=== PATIENT | female | born 1965 | race Asian ===

== ENCOUNTER → 2018-09-09 12:50 | Outpatient (CLI) | payer OTHER, SELFPAY ==
--- NOTE | 2018-09-09 | DI.MG.S_ITS ---
BILATERAL DIGITAL SCREENING MAMMOGRAM 3D/2D WITH CAD: 09/09/2018 CLINICAL: Routine screening. Comparison is made to exams dated: 01/23/2016 mammogram, 10/04/2014 mammogram, and 04/05/2008 mammogram - [facility]. The tissue of both breasts is heterogeneously dense. This may lower the sensitivity of mammography. Current study was also evaluated with a Computer Aided Detection (CAD) system. No significant masses, calcifications, or other findings are seen in either breast. There has been no significant interval change. IMPRESSION: NEGATIVE There is no mammographic evidence of malignancy. A 1 year screening mammogram is recommended. This exam was interpreted at Station ID: [id number]. NOTE: For mammograms, a report in lay terms will be sent to the patient. Approximately 15% of breast malignancies will not be visualized mammographically. In the management of a palpable breast mass, a negative mammogram must not discourage biopsy of a clinically suspicious lesion. Electronically Signed By: Rainer ye/carmen:09/11/2018 03:00:05 letter sent: Normal Exam ACR BI-RADS Category 1: Negative 3341F
== END ==
PROVIDERS: PCP Registered Nurse Women's Health Care, Ambulatory; Visit Provider Family Medicine
DX: Z12.31 Encounter for screening mammogram for malignant neoplasm of breast (principal)
CPT/HCPCS: 77063; 77067

== ENCOUNTER → 2018-11-01 12:37 | Outpatient (CLI) | payer OTHER, SELFPAY ==
--- NOTE | 2018-11-01 | DI.MRI.S_ITS ---
PROCEDURE: MR LUMBAR SPINE WO CON INDICATIONS: LUMBAR RADICULOPATHY,CHRONIC NECK PAIN TECHNIQUE: Noncontrast sagittal T1 spin echo and T2 fast echo, sagittal STIR, axial T1 and T2 fast spin echo through the lumbar spine. In cases with scoliosis, additional coronal T2 fast spin echo may be performed. COMPARISON: [facility] [place], CR, XR LUMBAR SPINE 2 OR 3 VIEWS, 10/19/2018, 9:00. FINDINGS: Image quality: Excellent. Alignment and Curvature: There is a transitional element at S1. Bone Marrow: Marrow is of normal overall signal. No acute vertebral body compression fractures. Spinal Cord: Conus medullaris terminates at the L1-L2 disc space level. Visualized cord demonstrates normal signal and size. Paraspinous Soft Tissues: There is a 40 mm diameter partially exophytic predominantly fat-containing mass within the superior pole left kidney. L1-L2: Mild facet hypertrophy. No significant canal, nor foraminal stenosis. L2-L3: Minimal disc desiccation. Minimal diffuse disc bulge. Mild bilateral facet hypertrophy. Mild canal stenosis. No foraminal stenosis. L3-L4: Mild disc height loss and desiccation. Mild diffuse disc bulge. Mild bilateral facet hypertrophy. Mild epidural lipomatosis. Mild canal stenosis. Mild bilateral foraminal stenosis or L4-L5: Mild bilateral facet hypertrophy. No significant canal, nor foraminal stenosis. L5-S1: Mild diffuse disc bulge. Mild bilateral facet hypertrophy. Mild bilateral foraminal stenosis. No canal stenosis. IMPRESSION: 1. Left superior pole renal angiomyolipoma. For lesions of this size, prophylactic embolization should be considered for prevention of hemorrhage. Interventional radiology consultation at [facility] could be considered, if clinically indicated. 2. Transitional anatomy at the lumbosacral junction as described above. Recommend correlation with plain films and the montage final for the current examination for numbering purposes, prior to any lumbar spinal intervention. 3. Multilevel degenerative disc and facet disease, causing mild multilevel canal and foraminal stenoses as described above. No neural impingement. Dictated by: Ernestina Canales M.D. on 11/01/2018 at 15:25 Approved by: Ernestina Canales M.D. on 11/01/2018 at 15:30
--- NOTE | 2018-11-01 | DI.MRI.S_ITS ---
PROCEDURE: MR CERVICAL SPINE WO CON INDICATIONS: CHRONIC NECK PAIN TECHNIQUE: Noncontrast sagittal T1 spin echo and T2 fast spin echo, sagittal STIR, foraminal oblique sagittal T2 fast spin echo, and axial gradient echo or T2 fast spin echo through the cervical spine. COMPARISON: [facility] [place], CR, XR CERVICAL SPINE 2 OR 3 VIEWS, 10/19/2018, 8:57. FINDINGS: Image quality: Excellent. Alignment and Curvature: There is loss of normal cervical lordosis. Bone Marrow: Marrow demonstrates normal overall signal. Partial C4-C5 collection is present. Rudimentary C4-C5 intervertebral disc. Spinal Cord: Visualized spinal cord has normal size and signal. No cerebellar tonsillar herniation. Paraspinous Soft Tissues: No paravertebral masses. Prevertebral soft tissues are normal in thickness. C2-C3: Normal appearance. C3-C4: Congenital canal stenosis. Mild disc desiccation and diffuse disc bulge. Mild bilateral facet hypertrophy. Moderate canal stenosis. Mild right and moderate left foraminal stenosis. C4-C5: Rudimentary disc. No significant canal, nor foraminal stenosis. C5-C6: Moderate disc desiccation. Mild diffuse disc bulge. Congenital canal stenosis. Mild bilateral facet hypertrophy and uncovertebral hypertrophy. Moderate canal stenosis. Minimal cord flattening. Moderate foraminal stenosis bilaterally. C6-C7: Moderate disc desiccation. Mild diffuse disc bulge. Small central protrusion and annular tear. Congenital canal stenosis. There is overall moderate canal stenosis. No foraminal stenosis. C7-T1: Normal appearance. IMPRESSION: 1. Diffuse congenital canal stenosis with superimposed disc and facet disease, as well as uncovertebral hypertrophy. 2. Multilevel canal stenoses, worst at C5-C6, where there is minimal cord flattening present. 3. Multilevel foraminal stenoses, worst at C3-C4 on the left, and at C5-C6 bilaterally. Dictated by: Ernesitna Canales M.D. on 11/01/2018 at 15:19 Approved by: Ernestina Canales M.D. on 11/01/2018 at 15:24
== END ==
PROVIDERS: PCP Registered Nurse Women's Health Care, Ambulatory; Visit Provider Physician Assistant
DX: M48.02 Spinal stenosis, cervical region (principal); D17.71 Benign lipomatous neoplasm of kidney; M50.21 Other cervical disc displacement, high cervical region; M51.16 Intervertebral disc disorders with radiculopathy, lumbar region; M51.17 Intervertebral disc disorders with radiculopathy, lumbosacral region; M48.061 Spinal stenosis, lumbar region without neurogenic claudication; M48.07 Spinal stenosis, lumbosacral region; G89.29 Other chronic pain
CPT/HCPCS: 72141; 72148

== ENCOUNTER → 2019-09-12 10:50 | Outpatient (CLI) | payer OTHER, SELFPAY ==
--- NOTE | 2019-09-12 | DI.MG.S_ITS ---
BILATERAL DIGITAL SCREENING MAMMOGRAM 3D/2D WITH CAD: 09/12/2019 CLINICAL: Routine screening. Comparison is made to exams dated: 09/09/2018 mammogram, 01/23/2016 mammogram, and 10/04/2014 mammogram - [facility]. The tissue of both breasts is heterogeneously dense. This may lower the sensitivity of mammography. Current study was also evaluated with a Computer Aided Detection (CAD) system. There is an irregular asymmetry in the right breast middle depth central to the nipple seen on the craniocaudal view only. Finding is best noted on tomographic CC slice 38. There is possible architectural distortion associated with the asymmetry. No other significant masses, calcifications, or other findings are seen in either breast. IMPRESSION: INCOMPLETE: NEEDS ADDITIONAL IMAGING EVALUATION The irregular asymmetry in the right breast is indeterminate. Additional views with possible ultrasound are recommended. This exam was interpreted at Station ID: [id number]. NOTE: For mammograms, a report in lay terms will be sent to the patient. Approximately 15% of breast malignancies will not be visualized mammographically. In the management of a palpable breast mass, a negative mammogram must not discourage biopsy of a clinically suspicious lesion. Electronically Signed By: Rainer Lord M.D. ecl/:09/12/2019 21:54:19 letter sent: Additional Imaging Needed ACR BI-RADS Category 0: Incomplete 3340F
== END ==
PROVIDERS: PCP Nurse Practitioner Family; Visit Provider Nurse Practitioner Family
DX: Z12.31 Encounter for screening mammogram for malignant neoplasm of breast (principal)
CPT/HCPCS: 77063; 77067

== ENCOUNTER → 2019-10-09 09:58 | Outpatient (CLI) | payer OTHER, SELFPAY ==
--- NOTE | 2019-10-09 | DI.US.S_ITS ---
LIMITED ULTRASOUND OF RIGHT BREAST: 10/09/2019 CLINICAL: Patient returns today to evaluate a focal asymmetry in the right breast. Comparison is made to exams dated: 10/09/2019 mammogram, 09/12/2019 mammogram, 09/09/2018 mammogram, 01/23/2016 mammogram, 10/04/2014 mammogram, and 04/05/2008 mammogram - [facility]. Real-time ultrasound of the right breast 3-4 o'clock region was performed. Felipe scale images of the real-time examination were reviewed. No significant abnormalities were seen sonographically in the right breast. Specifically, no finding to correspond to the patient's mammographic abnormality which partially resolved with focal spot compression. IMPRESSION: PROBABLY BENIGN There are no abnormalities seen in the right breast to correspond with the mammography findings at 3 to 4 o'clock. A follow-up right mammogram in 6 months is recommended to demonstrate stability. Findings and recommendations were conveyed to the patient at time of exam. This exam was interpreted at Station ID: [id number]. Electronically Signed By: Marguerite guerrero/:10/09/2019 11:12:01 letter sent: Followup Recommended Ultrasound BI-RADS: 3 Probably benign
--- NOTE | 2019-10-09 | DI.MG.S_ITS ---
UNILATERAL RIGHT DIGITAL DIAGNOSTIC MAMMOGRAM 3D/2D WITH ADDITIONAL VIEWS: 10/09/2019 CLINICAL: Additional evaluation requested from prior study. Comparison is made to exams dated: 09/12/2019 mammogram, 09/09/2018 mammogram, and 01/23/2016 mammogram - [facility]. The tissue of right breast is heterogeneously dense. This may lower the sensitivity of mammography. There is a 1 cm irregular asymmetry in the right breast middle depth medial region seen best on the craniocaudal view 1.5 cm from the nipple. This maybe present in the 3-4 o'clock position. This is questionably present in focal spot compression views but is less prominent than on the screening study. There is possible architectural distortion associated with the asymmetry, also less prominent. No other significant masses or calcifications are seen in the breast. IMPRESSION: INCOMPLETE: NEEDS ADDITIONAL IMAGING EVALUATION The 1 cm irregular asymmetry with possible distortion in the right breast is indeterminate. An ultrasound is recommended. This was performed immediately following this exam. This exam was interpreted at Station ID: [id number]. NOTE: For mammograms, a report in lay terms will be sent to the patient. Approximately 15% of breast malignancies will not be visualized mammographically. In the management of a palpable breast mass, a negative mammogram must not discourage biopsy of a clinically suspicious lesion. Electronically Signed By: Marguerite guerrero/:10/09/2019 10:48:34 ACR BI-RADS Category 0: Incomplete 3340F
== END ==
PROVIDERS: PCP Nurse Practitioner Family; Visit Provider Nurse Practitioner Family
DX: R92.8 Other abnormal and inconclusive findings on diagnostic imaging of breast (principal); N64.89 Other specified disorders of breast
CPT/HCPCS: 76642; 77065; G0279

== ENCOUNTER 2020-03-21 14:46 | Emergency (ER) | payer OTHER, SELFPAY ==
[2020-03-21 14:58] VITALS: BP 108/56; PULSE 69; RESP 40; TEMP 36.8; O2SAT 94; BMI 25.6
--- NOTE | 2020-03-21 15:08 | DI.RAD.S_ITS ---
PROCEDURE: XR CHEST 1V INDICATIONS: cough x 6 weeks, no improvement, tachypnea. TECHNIQUE: One view of the chest was acquired. COMPARISON: None. FINDINGS: Surgical changes and devices: None. Lungs and pleura: The area of increased density is identified at the right lung base. No large area of pulmonary consolidation is evident. There is no effusion or pneumothorax. Mediastinum: Mediastinal contours appear normal. Heart size is normal. Bones and chest wall: No suspicious bony lesions. Overlying soft tissues appear unremarkable. IMPRESSION: Vague right basilar density may represent scarring or atelectasis. Please correlate clinically to exclude superimposed pneumonia. Dictated by: Imtiaz Haji M.D. on 03/21/2020 at 14:59 Approved by: Imtiaz Haji M.D. on 03/21/2020 at 15:00
--- NOTE | 2020-03-21 15:10 | ED.SOB ---
HPI - SOB/Dyspnea General Chief Complaint: Shortness of Breath/Dyspnea Stated Complaint: chest, short of breath Time Seen by Provider: 03/21/20 14:50 Source: patient and family () Mode of arrival: Ambulatory Limitations: no limitations History of Present Illness HPI Narrative: This is a 54-year-old female comes to the emergency department with complaint of cough for the past 6 weeks. Patient states that cough has not been significantly worsening but she came in today because she felt lightheaded and it has not improved. She has not had any fevers she occasionally has productive clear phlegm but not regularly. According to her and her who is augmenting her history when she is still her cough is fairly well controlled but when she is walking around her active or standing hit is worsened and frequent and inhibits her activities. She has not had any syncope. She did feel little lightheaded today. She describes little bit of chest and back pain with cough but is pain free when not coughing. She has not had any hemoptysis. She has had some slight nausea but no vomiting. She has had some diarrhea recently but not regularly. She denies any urinary symptoms. No swelling in her extremities. No long distance travel or travel outside the [facility]. She was covid tested yesterday and swabbed negative at the drive up site in [facility]. She has not had similar symptoms in the past. She has a history of hypothyroid and takes thyroid medication and has had a mass removed from her kidney in the past. She denies other surgical history. No tob use or exposure, denies etoh or illicit. No sick contacts that she is aware of, she lives with her who has not had any symptoms. Related Data Previous Rx's Medication Instructions Recorded codeine-guaifenesin 10 ml PO Q6H PRN #120 ml 03/21/20 Allergies Allergy/AdvReac Type Severity Reaction Status Date / Time No Known Drug Allergies Allergy Verified 03/21/20 14:58 Review of Systems Review of Systems ROS Unobtainable: All systems reviewed & are unremarkable except as noted in HPI and below Patient History Surgical History (Updated 03/15/18 @ 05:45 by Ambrose Davalos MD) Status post hemorrhoidectomy Social History Smoking Status: Never smoker Smoking Status: Never smoker Substance Use Type: does not use Exam Narrative Exam Narrative: GEN: well nourished, well appearing female, alert and oriented x 3, patient appears to be in [id number] distress. HEENT: Atraumatic, pupils are equal round reactive to light, extraocular movements are intact, nares are clear. HEART: Regular rate and rhythm without murmur, clicks, rubs. LUNGS:Lungs mildly decreased bilaterally on auscultation, no wheezes, rales, crackles, chest moves symmetrically, positive for tachypnea. Patient does not have any accessory muscle use. Patient does have a dry almost squeaky cough frequently in the room. ABD:bowel sounds normal, soft, non-tender, no guarding, rebound, rigidity, no masses noted, no hepatosplenomegaly :No CVA tenderness MSCL: Non-tender, no muscle atrophy, muscles strength 5/5 upper and lower extremities, full range of motion, normal gait NEURO:CN 2-12 intact, sensation normal. SKIN: no rash, no erythema or skin changes. Initial Vital Signs Initial Vital Signs: Vital Signs Temperature 98.2 F 03/21/20 14:58 Pulse Rate 69 03/21/20 14:58 Respiratory Rate 40 H 03/21/20 14:58 Blood Pressure 108/56 L 03/21/20 14:58 Pulse Oximetry 94 03/21/20 14:58 Course Orders Ordered: ED Orders 03/21/20 15:08 XR chest 1V Stat 03/21/20 15:26 Blood Culture Stat C-Reactive Protein Quant Stat Complete Blood Count AUTO DIFF Stat Comprehensive Metabolic Panel Stat D Dimer Stat Lactate (Lactic Acid) Stat NT-proBNP (BNP-Adult 18+) Stat Procalcitonin Stat Troponin & CK Cardiac Panel Stat 03/21/20 16:23 CT angio chest PE protocol Stat 03/21/20 17:34 Lactate (Lactic Acid) Stat Discontinued Medications Albuterol (Ventolin Hfa) 8 puff INH NOW ONE Stop: 03/21/20 15:09 Last Admin: 03/21/20 15:28 Dose: 8 puff Documented by: COLETTE Guaifenesin/Codeine Phosphate (Guaifenesin/Codeine Liquid) 10 ml PO NOW ONE Stop: 03/21/20 15:09 Last Admin: 03/21/20 15:24 Dose: 10 ml Documented by: STEPHANIE Sodium Chloride (Normal Saline 0.9%) 1,000 mls @ 1,000 mls/hr IV BOLUS ONE Stop: 03/21/20 17:22 Last Infusion: 03/21/20 17:48 Dose: 0 mls/hr Documented by: Admin: 03/21/20 16:45 Dose: 1,000 mls/hr Documented by: KENISHA Ketorolac Tromethamine (Toradol) 30 mg IV NOW ONE Stop: 03/21/20 18:18 Vital Signs Vital signs: Vital Signs - 8 hr 03/21/20 14:58 03/21/20 15:32 03/21/20 15:55 Temperature 98.2 F Pulse Rate 69 97 H Respiratory Rate 40 H 28 H 22 Blood Pressure 108/56 L Blood Pressure [Right Arm] 101/67 Pulse Oximetry 94 94 100 03/21/20 16:30 03/21/20 19:15 Temperature Pulse Rate 67 81 Respiratory Rate 20 20 Blood Pressure Blood Pressure [Right Arm] 97/55 L 92/57 L Pulse Oximetry 99 99 MDM - SOB/Dyspnea Lab Data Attestation: I reviewed the patient's lab results. Result diagrams: 03/21/20 15:26 03/21/20 15:26 Labs: Lab Results 03/21/20 03/21/20 03/21/20 Range/Units 15:26 15:26 15:26 WBC 12.5 H (4.5-11.0) X10^3/uL RBC 4.68 (4.0-5.2) X10^6/uL Hgb 13.8 (12.0-16.0) g/dL Hct 41.0 (36-46) % MCV 87.6 (80-100) fL MCH 29.5 (26-34) PG MCHC 33.6 (30-36) % RDW 13.3 (11.6-14.8) % Plt Count 269 (150-400) X10^3/uL Neut % (Auto) 55.2 (50-75) % Lymph % (Auto) 35.8 (25-40) % Sandoval % (Auto) 5.0 (3-14) % Eos % (Auto) 3.5 (2-4) % Baso % (Auto) 0.5 (0-2) % Neut # (Auto) 6900 (4584-2236) /uL Lymph # (Auto) 4500 (1723-6620) /uL Sandoval # (Auto) 600 (0-900) /uL Eos # (Auto) 400 (0-450) /uL Baso # (Auto) 100 (0-100) /uL D-Dimer 603 H (<230) ng/mL Sodium 142 (137-145) mmol/L Potassium 3.8 (3.4-5.1) mmol/L Chloride 107 (98-107) mmol/L Carbon Dioxide 23 (22-32) mmol/L BUN 13 (7-17) mg/dL Creatinine 0.89 (0.52-1.04) mg/dL Estimated GFR > 60.0 (>60) mL/min BUN/Creatinine Ratio 14.6 (6-22) Glucose 98 (70-100) mg/dL Lactate (0.7-2.1) mmol/L Calcium 9.7 (8.4-10.2) mg/dL Total Bilirubin 0.5 (0.2-1.3) mg/dL AST 50 H (14-36) IU/L ALT 43 H (<35) IU/L Alkaline Phosphatase 93 (38-126) U/L Total Creatine Kinase 54 (30-135) U/L CK-MB (CK-2) TNP CK-MB (CK-2) Rel Index TNP Troponin I < 0.012 (0.01-0.034) ng/mL C-Reactive Protein < 0.5 (<1.0) mg/dL NT-Pro-B Natriuret Pep 142 H (<125) pg/mL Total Protein 8.5 H (6.3-8.2) g/dL Albumin 4.6 (3.5-5.0) g/dL Globulin 3.9 (1.7-4.1) g/dL Albumin/Globulin Ratio 1.2 (1.0-2.8) Procalcitonin (<0.5) ng/mL 03/21/20 03/21/20 03/21/20 Range/Units 15:26 15:26 17:34 WBC (4.5-11.0) X10^3/uL RBC (4.0-5.2) X10^6/uL Hgb (12.0-16.0) g/dL Hct (36-46) % MCV (80-100) fL MCH (26-34) PG MCHC (30-36) % RDW (11.6-14.8) % Plt Count (150-400) X10^3/uL Neut % (Auto) (50-75) % Lymph % (Auto) (25-40) % Sandoval % (Auto) (3-14) % Eos % (Auto) (2-4) % Baso % (Auto) (0-2) % Neut # (Auto) (9665-8669) /uL Lymph # (Auto) (4785-4606) /uL Sandoval # (Auto) (0-900) /uL Eos # (Auto) (0-450) /uL Baso # (Auto) (0-100) /uL D-Dimer (<230) ng/mL Sodium (137-145) mmol/L Potassium (3.4-5.1) mmol/L Chloride (98-107) mmol/L Carbon Dioxide (22-32) mmol/L BUN (7-17) mg/dL Creatinine (0.52-1.04) mg/dL Estimated GFR (>60) mL/min BUN/Creatinine Ratio (6-22) Glucose (70-100) mg/dL Lactate 4.1 H* 1.4 (0.7-2.1) mmol/L Calcium (8.4-10.2) mg/dL Total Bilirubin (0.2-1.3) mg/dL AST (14-36) IU/L ALT (<35) IU/L Alkaline Phosphatase (38-126) U/L Total Creatine Kinase (30-135) U/L CK-MB (CK-2) CK-MB (CK-2) Rel Index Troponin I (0.01-0.034) ng/mL C-Reactive Protein (<1.0) mg/dL NT-Pro-B Natriuret Pep (<125) pg/mL Total Protein (6.3-8.2) g/dL Albumin (3.5-5.0) g/dL Globulin (1.7-4.1) g/dL Albumin/Globulin Ratio (1.0-2.8) Procalcitonin < 0.05 (<0.5) ng/mL Imaging Data Chest x-ray: Radiologist's Impression: [address] [address] XRay Report Signed Patient: Jeffery Richardson#: [id number] : 1965Acct:[id number] Age/Sex: 54 / FDate of Service: 03/21/20 Loc: ED Accession Number: [id number] Procedure: XR chest 1V Ordering Provider: Elina Gabriel D.O. PROCEDURE: XR CHEST 1V INDICATIONS: cough x 6 weeks, no improvement, tachypnea. TECHNIQUE: One view of the chest was acquired. COMPARISON: None. FINDINGS: Surgical changes and devices: None. Lungs and pleura: The area of increased density is identified at the right lung base. No large area of pulmonary consolidation is evident. There is no effusion or pneumothorax. Mediastinum: Mediastinal contours appear normal. Heart size is normal. Bones and chest wall: No suspicious bony lesions. Overlying soft tissues appear unremarkable. IMPRESSION: Vague right basilar density may represent scarring or atelectasis. Please correlate clinically to exclude superimposed pneumonia. Dictated by: Imtiaz Haji M.D. on 03/21/2020 at 14:59 Approved by: Imtiaz Haji M.D. on 03/21/2020 at 15:00 CT scan - chest: Radiologist's Impression: [address] [address] [address] Scan Report Signed Patient: Jeffery Richardson#: [id number] : 1965Acct:[id number] Age/Sex: 54 / FDate of Service: 03/21/20 Loc: ED Accession Number: [id number] Procedure: CT angio chest PE protocol Ordering Provider: Elina Gabriel D.O. PROCEDURE: CT ANGIO CHEST PE PROTOCOL INDICATIONS: cough, tachypnea, elevated lactate, ddimer TECHNIQUE: After the administration of intravenous contrast, 2 mm thick sections acquired from the pulmonary apices to the posterior costophrenic angles. 3-dimensional maximum intensity projection (MIP) coronal and sagittal reformats were then acquired through the thorax. For radiation dose reduction, the following was used: automated exposure control, adjustment of mA and/or kV according to patient size. COMPARISON: [facility], , XR CHEST 1V, 03/21/2020, 15:14. FINDINGS: Image quality: Excellent. Pulmonary arteries: Pulmonary arteries are normal in size, and demonstrate no intraluminal filling defects to suggest central pulmonary embolism. Lungs and pleura: There are numerous diffusely scattered foci of ill-defined groundglass and patchy opacities involving the bilateral hemithoraces which appear to be predominantly peripheral in location. No suspicious septal nodularity. No significant septal thickening. No focal consolidations. However, a more focal opacities noted in the right middle lobe measuring approximately 1.4 cm in size. Dependent atelectasis is visualized. No substantial pleural effusion. No pneumothorax. Central and peripheral airways are patent. Mediastinum: Heart size is normal, without pericardial effusion. No mediastinal or hilar adenopathy. There are numerous mediastinal lymph nodes more notable for number rather than size and likely reactive in etiology. Thoracic aorta is normal in caliber and enhancement. Esophagus is normal in caliber, without hiatal hernia. Bones and chest wall: No suspicious bony lesions. Ribs and thoracic spine appear intact throughout. Thyroid gland is unremarkable. No axillary or supraclavicular adenopathy. Abdomen: Visualized upper abdominal solid organs appear normal in the early arterial phase of enhancement. IMPRESSION: 1. No acute pulmonary emboli identified. No evidence for acute right-sided heart strain. 2. Diffuse, ill-defined patchy opacities and groundglass opacities involving the bilateral hemithoraces which demonstrate a more peripheral distribution. There is a more focal density noted in the right middle lobe measuring approximately 14 mm in size. No focal consolidation or suspicious mass lesions. No adenopathy. Findings are favored to represent an infectious/inflammatory process with viral or atypical organism most likely. Edema or pulmonary hemorrhage it is conceivable but thought less likely. Recommend short interval followup CT in approximately 3 months to document resolution versus stability. Dictated by: Daniel Chavez M.D. on 03/21/2020 at 16:50 Approved by: Daniel Chavez M.D. on 03/21/2020 at 17:08 ECG Data Attestation: I personally reviewed and interpreted this ECG as follows: Interpretation: Sinus rhythm rate of 71 P are 156 QRS is 74 and QTC of 410. Q-wave in lead 3. No ST elevation or depression appreciated. No prior for comparison. MDM Narrative Medical decision making narrative: Patient does have a persistent dry cough while I am evaluating her. Given albuterol MDI, 8 puffs and codeine po, on recheck patient has had some improvement with albuterol. Patient had covid testing yesterday at outpatient facility, would defer repeat swab at this time but would check labs and chest xray with patient's persistent symptoms. She is tachypneic initially on evaluation. Afebrile, O2 is 94% with no tachycardia noted. She has not had any sick contacts she is aware of, her other household members including her have not been ill. She has a history of hypothyroidism and a mass on her kidney that was removed remotely, she denies any other medical issues. No tob abuse. Patient's white count is elevated at 12 with otherwise normal hemoglobin, D-dimer is 600 with normal electrolytes and renal function. Lactate is 4.1 and elevated LFTs mildly at 50 and 43. Troponin is negative, BNP is only 142 with C reactive protein being negative and procalcitonin being negative. Patient does not have any risk factors for PE but with her atypical presentation and possible pneumonia on chest x-ray that are not classic changes for covid I would check a CT angio. Patient given [address] shows no PE, no evidence of right heart strain. Patient has diffuse ill defined patchy opacity ground-glass opacities bilateral hemithoraces see with more peripheral distribution. She has more focal density a right middle lobe its 14 mm no focal consolidation, no suspicious mass lesions or adenopathy findings favor infectious/inflammatory process with viral or atypical organism. Patient was Joseph walked for COVID-19 and sent out. recheck lactate shows significant improvement. Nursing had placed on patient on NC 2L for a short period, patient felt more comfortable but was removed shortly. Cough and symptoms improved including tachypnea with codeine and albuterol MDI, patient feels much better. She is not on O2 in the department and is RA at 98% for extended period of time. Discussed with patient we did raise what her work open it is pending it takes 2-3 days to return. Plan for albuterol as needed she has the inhaler and was given a spacer codeine as needed for cough. Patient and I discussed that if her COVID-19 swab is negative she may benefit from steroids and even possibly antibiotics although her labs do not support a bacterial infection at this time. She can either return here or follow-up with her primary care for this. If she is having any worsening symptoms I encouraged her to return immediately if she was tachypneic when she came to the department. Patient and family feel comfortable with this plan. Discharge Plan Departure Patient Disposition: Home Clinical Impression: Pneumonia, Cough Instructions: DI for COVID-19 (Suspected or Confirmed ) Activity Restrictions/Additional Instructions: *You have been diagnosed with viral pneumonia, which based on your symptoms, labs and imaging is highly suspicious for coronavirus even though your testing was negative yesterday at the drive up clinic. You were retested today and will take 2-3 days to result Continue to use albuterol 4 puffs every 4 hours as needed for symptoms. Use with a spacer. If your coronavirus swab is negative, discuss with your physician if steroids or antibiotics would be appropriate to start. I would not start these until your repeat swab has resulted. Return to ER for persistent fevers, worsening shortness of breath, worsening lightheadedness or passing, persistent vomiting, swelling of your extremities or other new or concerning symptoms Take with cough medication, this medication can make you sleepy do not drive, perform hazardous activities or make any major decisions while taking it. *What to do: * per recommendations from the CDC and the [facility] Department of Health * stay home except to get medical care. Restrict activities outside your home, except for getting medical care. Do not go to work, school, or public areas. Avoid using public transportation, ride sharing, or taxis. * separate yourself from other people in your home. * call ahead before visiting your doctor * Wear a face mask * Cover your coughs and sneezes * Clean your hands often * Avoid sharing household items * Clean all high-touch services every day * Monitor your symptoms and seek prompt medical attention if your illness is worsening, particularly with difficulty in breathing. Discussed continuing home isolation * for individuals with symptoms who are confirmed or suspected cases of COVID-19 and are directed to care for themselves at home, discontinue home isolation under the following conditions: 1. At least 72 hours have passed since recovery, defined as resolution of fever without the use of fever reducing medications, and improvement in respiratory symptoms (cough, shortness of breath) AND, 2. At least 7 days have passed since symptoms 1st appeared Individuals with laboratory confirmed COVID-19 who have not had any symptoms may discontinue home isolation when at least 7 days have passed since the date of their 1st COVID-19 diagnostic test and have had no subsequent illness Prescriptions: New codeine-guaifenesin 10-100 mg/5 mL liquid 10 ml PO Q6H PRN (Reason: cough) Qty: 120 RF: 0 Referrals: Janett Don ARNP [Primary Care Provider] -
[2020-03-21] MEDS: CODEINE/GUAIFENESIN LIQUID 5ML UDC 10 ML PO (15:24)
[2020-03-21] MEDS: ALBUTEROL HFA 60 PUFF/8 GM INH 8 PUFF INH (15:28)
[2020-03-21 15:32] VITALS: RESP 28; O2SAT 94
--- NOTE | 2020-03-21 15:36 | PC.NURSE ---
pt arrives with consistent cough, some small breaks, not coughing anything up, she arrives wearing a mask. pt reports she had COVID test done yesterday and it was negative. pt states about a month ago had been seen for similar symptoms, and has not gotten better since. over the past week having worsening symptoms. pt having difficulty slowing her breathing down due to her cough.
[2020-03-21 15:39] LABS: Add Manual Diff / Slide Review NO; Basophils Absolute Auto 100 /uL (0-100); Basophils Percent Auto 0.5 % (0-2); Eosinophils Absolute Auto 400 /uL (0-450); Eosinophils Percent Auto 3.5 % (2-4); Hemoglobin 13.8 g/dL (12.0-16.0); Lymphocytes Absolute Auto 4500 /uL (1100-4500); Lymphocytes Percent Auto 35.8 % (25-40); Mean Corpuscular HGB Conc 33.6 % (30-36); Mean Corpuscular Hemoglobin 29.5 PG (26-34); Mean Corpuscular Volume 87.6 fL (80-100); Monocytes Absolute Auto 600 /uL (0-900); Neutrophils Absolute Auto 6900 /uL (1500-7000); Neutrophils Percent Auto 55.2 % (50-75); Platelet Count 269 X10^3/uL (150-400); Red Blood Cell Count 4.68 X10^6/uL (4.0-5.2); Red Cell Distribution Width 13.3 % (11.6-14.8); White Blood Cell Count 12.5 X10^3/uL (4.5-11.0)
[2020-03-21 15:55] VITALS: BP 101/67; PULSE 97; RESP 22; O2SAT 100
[2020-03-21 15:57] LABS: Alanine Aminotransferase 43 IU/L (<35); Albumin 4.6 g/dL (3.5-5.0); Albumin Globulin Ratio 1.2 (1.0-2.8); Alkaline Phosphatase 93 U/L (38-126); Aspartate Aminotransferase 50 IU/L (14-36); BUN Creatinine Ratio 14.6 (6-22); Bilirubin Total 0.5 mg/dL (0.2-1.3); Blood Urea Nitrogen 13 mg/dL (7-17); Calcium 9.7 mg/dL (8.4-10.2); Carbon Dioxide 23 mmol/L (22-32); Chloride 107 mmol/L (98-107); Creatine Kinase 54 U/L (30-135); Estimated Glomerular Filt Rate > 60.0 mL/min (>60); Globulin 3.9 g/dL (1.7-4.1); Glucose 98 mg/dL (70-100); HEMOLYSIS < 15 (0-50); Potassium 3.8 mmol/L (3.4-5.1); Sodium 142 mmol/L (137-145); Total Protein 8.5 g/dL (6.3-8.2)
[2020-03-21 15:58] LABS: D Dimer 603 ng/mL (<230)
[2020-03-21 16:02] LABS: Lactate (Lactic Acid) 4.1 mmol/L (0.7-2.1)
[2020-03-21 16:08] LABS: C-Reactive Protein Quant < 0.5 mg/dL (<1.0)
[2020-03-21 16:09] LABS: NT-proBNP (BNP-Adult 18+) 142 pg/mL (<125); Troponin I < 0.012 ng/mL (0.01-0.034)
[2020-03-21 16:16] LABS: Procalcitonin < 0.05 ng/mL (<0.5)
--- NOTE | 2020-03-21 16:23 | DI.CT.S_ITS ---
PROCEDURE: CT ANGIO CHEST PE PROTOCOL INDICATIONS: cough, tachypnea, elevated lactate, ddimer TECHNIQUE: After the administration of intravenous contrast, 2 mm thick sections acquired from the pulmonary apices to the posterior costophrenic angles. 3-dimensional maximum intensity projection (MIP) coronal and sagittal reformats were then acquired through the thorax. For radiation dose reduction, the following was used: automated exposure control, adjustment of mA and/or kV according to patient size. COMPARISON: [facility], CR, XR CHEST 1V, 03/21/2020, 15:14. FINDINGS: Image quality: Excellent. Pulmonary arteries: Pulmonary arteries are normal in size, and demonstrate no intraluminal filling defects to suggest central pulmonary embolism. Lungs and pleura: There are numerous diffusely scattered foci of ill-defined groundglass and patchy opacities involving the bilateral hemithoraces which appear to be predominantly peripheral in location. No suspicious septal nodularity. No significant septal thickening. No focal consolidations. However, a more focal opacities noted in the right middle lobe measuring approximately 1.4 cm in size. Dependent atelectasis is visualized. No substantial pleural effusion. No pneumothorax. Central and peripheral airways are patent. Mediastinum: Heart size is normal, without pericardial effusion. No mediastinal or hilar adenopathy. There are numerous mediastinal lymph nodes more notable for number rather than size and likely reactive in etiology. Thoracic aorta is normal in caliber and enhancement. Esophagus is normal in caliber, without hiatal hernia. Bones and chest wall: No suspicious bony lesions. Ribs and thoracic spine appear intact throughout. Thyroid gland is unremarkable. No axillary or supraclavicular adenopathy. Abdomen: Visualized upper abdominal solid organs appear normal in the early arterial phase of enhancement. IMPRESSION: 1. No acute pulmonary emboli identified. No evidence for acute right-sided heart strain. 2. Diffuse, ill-defined patchy opacities and groundglass opacities involving the bilateral hemithoraces which demonstrate a more peripheral distribution. There is a more focal density noted in the right middle lobe measuring approximately 14 mm in size. No focal consolidation or suspicious mass lesions. No adenopathy. Findings are favored to represent an infectious/inflammatory process with viral or atypical organism most likely. Edema or pulmonary hemorrhage it is conceivable but thought less likely. Recommend short interval followup CT in approximately 3 months to document resolution versus stability. Dictated by: Daniel Chavez M.D. on 03/21/2020 at 16:50 Approved by: Daniel Chavez M.D. on 03/21/2020 at 17:08
[2020-03-21 16:30] VITALS: BP 97/55; PULSE 67; RESP 20; O2SAT 99
[2020-03-21] MEDS: SODIUM CHLORIDE 0.9% 1,000 ML 1000 ML IV (16:45)
[2020-03-21 17:33] LABS: Reflexed Lactate in 2 Hours Y
[2020-03-21 17:58] LABS: Lactate (Lactic Acid) 1.4 mmol/L (0.7-2.1)
[2020-03-21 19:15] VITALS: BP 92/57; PULSE 81; RESP 20; O2SAT 99
[2020-03-23 16:07] LABS: COVID19 Sendout Not Detected (Not Detected)
== END 2020-03-21 19:29 | disposition home or self-care (01) ==
PROVIDERS: Emergency Provider Emergency Medicine; PCP Nurse Practitioner Family
DX: J18.9 Pneumonia, unspecified organism (principal); R05 Cough; R06.02 Shortness of breath; R19.7 Diarrhea, unspecified; E03.9 Hypothyroidism, unspecified
CPT/HCPCS: 36415; 71045; 71275; 80053; 82550; 83605; 83880; 84145; 84484; 85025; 85379; 86140; 87040; 87635; 93005; 94640; 96360; 99285; Q9967

== ENCOUNTER → 2020-05-03 15:12 | Outpatient (CLI) | payer OTHER, SELFPAY ==
--- NOTE | 2020-05-03 | DI.RAD.S_ITS ---
PROCEDURE: XR CHEST 2V INDICATIONS: SOB/Cough/Pneumonia TECHNIQUE: 2 views of the chest were acquired. COMPARISON: [facility], CT, CT ANGIO CHEST PE PROTOCOL, 03/21/2020, 16:21. [facility], CR, XR CHEST 1V, 03/21/2020, 15:14. FINDINGS: Surgical changes and devices: None. Lungs and pleura: Right perihilar and bilateral patchy airspace opacities present similar to prior examination. No pleural effusion or pneumothorax. Mediastinum: Mediastinal contours are normal. Heart size is normal. Bones and chest wall: No suspicious bony abnormalities. Soft tissues appear unremarkable. IMPRESSION: Right perihilar and bibasilar patchy airspace opacity similar to prior examination consistent with atelectasis versus pneumonia. Continued radiographic followup is recommended. Dictated by: Steve MCCULLOUGH Interpreted: Deuce Wesley MD on 05/03/2020 at 15:44 Approved by: Deuce Wesley M.D. on 05/03/2020 at 16:05
[2020-05-03 15:58] LABS: Add Manual Diff / Slide Review NO; Basophils Absolute Auto 100 /uL (0-100); Basophils Percent Auto 0.7 % (0-2); Eosinophils Absolute Auto 600 /uL (0-450); Eosinophils Percent Auto 6.6 % (2-4); Hematocrit 37.1 % (36-46); Hemoglobin 12.9 g/dL (12.0-16.0); Lymphocytes Absolute Auto 3200 /uL (1100-4500); Lymphocytes Percent Auto 36.2 % (25-40); Mean Corpuscular HGB Conc 34.8 % (30-36); Mean Corpuscular Hemoglobin 30.3 PG (26-34); Mean Corpuscular Volume 87.1 fL (80-100); Monocytes Absolute Auto 600 /uL (0-900); Monocytes Percent Auto 7.3 % (3-14); Neutrophils Absolute Auto 4400 /uL (1500-7000); Neutrophils Percent Auto 49.2 % (50-75); Platelet Count 261 X10^3/uL (150-400); Red Blood Cell Count 4.26 X10^6/uL (4.0-5.2); Red Cell Distribution Width 13.2 % (11.6-14.8); White Blood Cell Count 8.9 X10^3/uL (4.5-11.0)
[2020-05-03 16:13] LABS: Lactate (Lactic Acid) 1.7 mmol/L (0.7-2.1)
[2020-05-03 16:32] LABS: Erythrocyte Sedimentation Rate 52 MM/HR (0-20)
[2020-05-03 16:46] LABS: Alanine Aminotransferase 41 IU/L (<35); Albumin 4.3 g/dL (3.5-5.0); Albumin Globulin Ratio 1.3 (1.0-2.8); Alkaline Phosphatase 94 U/L (38-126); Aspartate Aminotransferase 50 IU/L (14-36); BUN Creatinine Ratio 24.2 (6-22); Bilirubin Total 0.6 mg/dL (0.2-1.3); Blood Urea Nitrogen 16 mg/dL (7-17); Calcium 10.1 mg/dL (8.4-10.2); Carbon Dioxide 31 mmol/L (22-32); Chloride 105 mmol/L (98-107); Estimated Glomerular Filt Rate > 60.0 mL/min (>60); Globulin 3.4 g/dL (1.7-4.1); Glucose 94 mg/dL (70-100); HEMOLYSIS < 15 (0-50); Sodium 140 mmol/L (137-145); Total Protein 7.7 g/dL (6.3-8.2)
[2020-05-03 16:49] LABS: C-Reactive Protein Quant < 0.5 mg/dL (<1.0)
[2020-05-03 16:52] LABS: NT-proBNP (BNP-Adult 18+) 238 pg/mL (<125)
== END ==
PROVIDERS: PCP Nurse Practitioner Family; Referring Provider Family Medicine; Visit Provider Family Medicine
DX: J18.9 Pneumonia, unspecified organism (principal); R05 Cough; R06.02 Shortness of breath
CPT/HCPCS: 36415; 71046; 80053; 83605; 83880; 85025; 85651; 86140

== ENCOUNTER → 2020-06-03 13:54 | Outpatient (CLI) | payer OTHER, SELFPAY ==
[2020-06-04 19:55] LABS: COVID19 Sendout Not Detected (Not Detect)
== END ==
PROVIDERS: PCP Nurse Practitioner Family; Visit Provider Nurse Practitioner
DX: Z01.812 Encounter for preprocedural laboratory examination (principal)
CPT/HCPCS: 87635

== ENCOUNTER → 2020-06-06 12:52 | Outpatient (CLI) | payer OTHER, SELFPAY ==
--- NOTE | 2020-06-07 14:11 | RT ---
Unable to test patient due to severe dyspnea, uncontrolled continuous coughing (bronchspasm) with RA Spo2 at 86% Patient's RA Spo2 returned to 92 with patient on her own oxygen per cannula at 1 lpm within approximately 5 minutes. Clinician asked to take patient to the ED and she refused. Patient continued with occasional coughing and dyspnea. This all took place after a single attempt for SVC (no forced maneuver). At this time with patient somewhat stable, she was asked if she could continue the PFT and the patient said no. The clinician is in agreement. Dr. Esparza's office was called and the above incident was explained to Dr. Mc's RN. The RN agreed and said she would relay this information to Dr. Mc. Patient was taken by wheelchair to the main entrance waiting area stable and in no distress
== END ==
PROVIDERS: PCP Nurse Practitioner Family; Referring Provider Internal Medicine; Visit Provider Internal Medicine
DX: J84.9 Interstitial pulmonary disease, unspecified (principal); J96.20 Acute and chronic respiratory failure, unspecified whether with hypoxia or hypercapnia

== ENCOUNTER → 2020-07-04 13:45 | Outpatient (CLI) | payer OTHER, SELFPAY ==
[2020-07-04 14:34] LABS: Hematocrit 40.4 % (36-46); Hemoglobin 13.2 g/dL (12.0-16.0); Mean Corpuscular HGB Conc 32.6 % (30-36); Mean Corpuscular Hemoglobin 29.3 PG (26-34); Platelet Count 270 X10^3/uL (150-400); Red Blood Cell Count 4.49 X10^6/uL (4.0-5.2); Red Cell Distribution Width 14.1 % (11.6-14.8); White Blood Cell Count 24.4 X10^3/uL (4.5-11.0)
[2020-07-04 14:44] LABS: Add Manual Diff / Slide Review YES
[2020-07-04 14:45] LABS: Erythrocyte Sedimentation Rate 3 MM/HR (0-20)
[2020-07-04 14:56] LABS: Alanine Aminotransferase 29 IU/L (<35); Albumin 4.1 g/dL (3.5-5.0); Albumin Globulin Ratio 1.4 (1.0-2.8); Alkaline Phosphatase 70 U/L (38-126); Aspartate Aminotransferase 35 IU/L (14-36); BUN Creatinine Ratio 22.5 (6-22); Bilirubin Total 0.5 mg/dL (0.2-1.3); Blood Urea Nitrogen 23 mg/dL (7-17); Carbon Dioxide 24 mmol/L (22-32); Chloride 106 mmol/L (98-107); Estimated Glomerular Filt Rate 56.9 mL/min (>60); Glucose 117 mg/dL (70-100); HEMOLYSIS < 15 (0-50); Potassium 4.1 mmol/L (3.4-5.1); Sodium 137 mmol/L (137-145); Total Protein 7.1 g/dL (6.3-8.2)
[2020-07-04 14:57] LABS: C-Reactive Protein Quant < 0.5 mg/dL (<1.0)
[2020-07-04 15:03] LABS: Neutrophils Absolute Manual 21228 /uL (3000-5900); RBC Morphology Normal Morphology; Total Cells Counted 100
[2020-07-04 15:04] LABS: Hypersegmented Neutrophils 2+
== END ==
PROVIDERS: PCP Nurse Practitioner Family; Referring Provider Internal Medicine Rheumatology; Visit Provider Internal Medicine Rheumatology
DX: M35.9 Systemic involvement of connective tissue, unspecified (principal)
CPT/HCPCS: 36415; 80053; 85025; 85651; 86140

== ENCOUNTER 2020-09-13 05:57 | Emergency (ER) | payer OTHER, SELFPAY ==
[2020-09-13] VITALS (7 sets, daily range): BP systolic 102–134; BP diastolic 58–70; PULSE 75–98; RESP 16–24; TEMP 36.6; O2SAT 82–99
--- NOTE | 2020-09-13 06:17 | ED_ITS ---
HPI - Head Injury <DO Gustavo Casey Last Filed: 09/13/20 19:27> General Chief complaint: Head Injury Stated complaint: headache and vomiting, weakness Time Seen by Provider: 09/13/20 05:58 Source: patient and family () Mode of arrival: Wheelchair Limitations: no limitations History of Present Illness HPI Narrative: 54-year-old female here for evaluation of a left-sided headache. Patient states the symptoms started last evening. She does not have history of headaches. Has not tried anything for this headache prior to arrival. She expresses photophobia. Did have vomiting on the way to the emergency department this morning but nothing prior to that and nothing since then. No numbness and tingling in her arms and her legs. Patient generally unwilling to answer many questions related to the HPI. Her answers many of the questions for her. There is no reports of trauma. Not on anticoagulation. Unsure the time the exact onset Related Data Previous Rx's Medication Instructions Recorded codeine-guaifenesin 10 ml PO Q6H PRN #120 ml 03/21/20 Allergies Allergy/AdvReac Type Severity Reaction Status Date / Time No Known Drug Allergies Allergy Verified 06/03/20 13:53 Review of Systems <DO Gustavo Casey Last Filed: 09/13/20 19:27> Constitutional Constitutional: Denies fatigue, Denies fever(s) and Reports headache(s) Eyes Comments: Photophobia ENT Ears, Nose, Mouth, and Throat: Denies vertigo, Denies dizziness, Reports headache(s), Denies disequilibrium, Denies sinus pressure and Reports sore throat Cardiovascular Cardiovascular: Denies chest pain and Denies dyspnea Respiratory Respiratory: Denies dyspnea Gastrointestinal Gastrointestinal: Denies abdominal pain and Reports vomiting Musculoskeletal Musculoskeletal: Denies arthralgias and Denies myalgias Integumentary/Breasts Skin/Breast: Denies rash Neurologic Neurologic: Denies confusion, Denies vertigo, Denies dizziness, Reports headache(s) and Denies disequilibrium Psychiatric Psychiatric: Denies confusion Endocrine Endocrine: Denies fatigue Hematologic/Lymphatic Hematologic/Lymphatic: Denies easy bleeding and Denies easy bruising Allergic/Immunologic Allergic/Immunologic: Denies urticaria Patient History <DO Gustavo Casey Filed: 09/13/20 19:27> Medical History Pneumonia (Acute) Surgical History (Updated 03/15/18 @ 05:45 by Ambrose Davalos MD) Status post hemorrhoidectomy Social History Smoking Status: Never smoker Smoking Status: Never smoker Substance Use Type: does not use Exam <DO Gustavo Casey Last Filed: 09/13/20 19:27> Initial Vital Signs Initial Vital Signs: Vital Signs Temperature 97.8 F 09/13/20 06:05 Pulse Rate 84 09/13/20 06:05 Respiratory Rate 24 09/13/20 06:05 Blood Pressure 134/70 09/13/20 06:05 Pulse Oximetry 98 09/13/20 06:05 Const General: well developed Limitations: mental status not altered HENMT Head: normal to inspection and normocephalic Nose: external nose normal Mouth: oral mucosae normal Eyes Pupils: PERRL EOM: EOM intact bilaterally Resp Effort & Inspection: normal respiratory effort Auscultation: clear to auscultation bilaterally Cardio Rate: regular rate Rhythm: regular rhythm GI Inspection: non-distended Palpation: soft Skin Lesions: no lesions Rashes: no rashes Neuro General: patient alert, patient awake and patient oriented x3 Cranial Nerves: CN's II-XI intact bilaterally Cognition: normal cognition Extrem General: normal to inspection and capillary refill normal Psych Appearance: grossly normal and well kempt <DO Gustavo Quiroz Last Filed: 09/13/20 11:22> Initial Vital Signs Initial Vital Signs: Vital Signs Temperature 97.8 F 09/13/20 06:05 Pulse Rate 84 09/13/20 06:05 Respiratory Rate 24 09/13/20 06:05 Blood Pressure 134/70 09/13/20 06:05 Pulse Oximetry 98 09/13/20 06:05 Scores <DO Gustavo Casey Last Filed: 09/13/20 19:27> G[facility] [place] coma scale eye opening: Spontaneous [place] coma scale verbal response: Orientated [place] coma scale motor response: Obey commands [place] coma scale total score: 15 Course <DO Gustavo Casey Last Filed: 09/13/20 19:27> Orders Ordered: Discontinued Medications Diphenhydramine HCl (Benadryl) 25 mg IV NOW ONE Stop: 09/13/20 06:18 Last Admin: 09/13/20 06:47 Dose: 25 mg Documented by: NANCY Sodium Chloride (Normal Saline 0.9%) 1,000 mls @ 1,000 mls/hr IV BOLUS ONE Stop: 09/13/20 07:16 Last Infusion: 09/13/20 13:23 Dose: 0 mls/hr Documented by: Admin: 09/13/20 06:46 Dose: 1,000 mls/hr Documented by: NANCY Ketorolac Tromethamine (Toradol) 30 mg IV NOW ONE Stop: 09/13/20 07:55 Last Admin: 09/13/20 08:04 Dose: 30 mg Documented by: YOSELIN Metoclopramide HCl (Reglan) 10 mg IV NOW ONE Stop: 09/13/20 06:18 Last Admin: 09/13/20 06:46 Dose: 10 mg Documented by: NANCY Vital Signs Vital signs: Vital Signs - 8 hr 09/13/20 06:05 09/13/20 07:03 09/13/20 07:40 Temperature 97.8 F Pulse Rate 84 84 80 Respiratory Rate 24 Blood Pressure 134/70 Pulse Oximetry 98 99 95 09/13/20 07:43 09/13/20 08:00 09/13/20 08:30 Temperature Pulse Rate 77 75 80 Respiratory Rate 16 16 Blood Pressure 103/58 L 102/59 L 110/62 Pulse Oximetry 93 99 99 09/13/20 08:41 Temperature Pulse Rate 98 H Respiratory Rate 16 Blood Pressure 112/61 Pulse Oximetry 82 L <Taina Leigh, - Last Filed: 09/13/20 11:22> Orders Ordered: Discontinued Medications Diphenhydramine HCl (Benadryl) 25 mg IV NOW ONE Stop: 09/13/20 06:18 Last Admin: 09/13/20 06:47 Dose: 25 mg Documented by: NANCY Sodium Chloride (Normal Saline 0.9%) 1,000 mls @ 1,000 mls/hr IV BOLUS ONE Stop: 09/13/20 07:16 Last Infusion: 09/13/20 13:23 Dose: 0 mls/hr Documented by: Admin: 09/13/20 06:46 Dose: 1,000 mls/hr Documented by: NANCY Ketorolac Tromethamine (Toradol) 30 mg IV NOW ONE Stop: 09/13/20 07:55 Last Admin: 09/13/20 08:04 Dose: 30 mg Documented by: YOSELIN Metoclopramide HCl (Reglan) 10 mg IV NOW ONE Stop: 09/13/20 06:18 Last Admin: 09/13/20 06:46 Dose: 10 mg Documented by: NANCY Vital Signs Vital signs: Vital Signs - 8 hr 09/13/20 06:05 09/13/20 07:03 09/13/20 07:40 Temperature 97.8 F Pulse Rate 84 84 80 Respiratory Rate 24 Blood Pressure 134/70 Pulse Oximetry 98 99 95 09/13/20 07:43 09/13/20 08:00 09/13/20 08:30 Temperature Pulse Rate 77 75 80 Respiratory Rate 16 16 Blood Pressure 103/58 L 102/59 L 110/62 Pulse Oximetry 93 99 99 09/13/20 08:41 Temperature Pulse Rate 98 H Respiratory Rate 16 Blood Pressure 112/61 Pulse Oximetry 82 L MDM - Head Injury <Jn Espinal DO - Last Filed: 09/13/20 19:27> Lab Data Result diagrams: 09/13/20 07:33 09/13/20 07:33 Labs: Lab Results 09/13/20 09/13/20 Range/Units 07:33 07:33 WBC 12.8 H (4.5-11.0) X10^3/uL RBC 4.40 (4.0-5.2) X10^6/uL Hgb 13.1 (12.0-16.0) g/dL Hct 39.4 (36-46) % MCV 89.5 (80-100) fL MCH 29.8 (26-34) PG MCHC 33.3 (30-36) % RDW 15.7 H (11.6-14.8) % Plt Count 187 (150-400) X10^3/uL Neut % (Auto) Not Reportable Lymph % (Auto) Not Reportable [place] % (Auto) Not Reportable Eos % (Auto) Not Reportable Baso % (Auto) Not Reportable Lymph # (Auto) Not Reportable [place] # (Auto) Not Reportable Baso # (Auto) Not Reportable Total Counted 100 Seg Neutrophils % 59.0 (38-70) % Band Neutrophils % 12.0 H (3-7) % Lymphocytes % (Manual) 13.0 L (25-45) % Atypical Lymphs % 7.0 H ( - 0) % Monocytes % (Manual) 7.0 (2-11) % Eosinophils % (Manual) 1.0 L (2-4) % Metamyelocytes % 1.0 H (-0) % Neutrophils # (Manual) 9088 H (2580-2682) /uL RBC Morphology See below Anisocytosis 1+ H Stomatocytes 2+ H Sodium 131 L (137-145) mmol/L Potassium 3.7 (3.4-5.1) mmol/L Chloride 96 L (98-107) mmol/L Carbon Dioxide 32 (22-32) mmol/L BUN 22 H (7-17) mg/dL Creatinine 0.52 (0.52-1.04) mg/dL Estimated GFR > 60.0 (>60) mL/min BUN/Creatinine Ratio 42.3 H (6-22) Glucose 92 (70-100) mg/dL Calcium 8.2 L (8.4-10.2) mg/dL MDM Narrative Medical decision making narrative: Patient with left-sided headache. Nonfocal neurologic exam. Has not tried anything for her symptoms so was given medicines here in the ER. Head CT ordered. Care turned over to Dr. Leigh at change of shift to follow up and disposition. <Taina Leigh, DO - Last Filed: 09/13/20 11:22> Lab Data Labs: Lab Results 09/13/20 09/13/20 Range/Units 07:33 07:33 WBC 12.8 H (4.5-11.0) X10^3/uL RBC 4.40 (4.0-5.2) X10^6/uL Hgb 13.1 (12.0-16.0) g/dL Hct 39.4 (36-46) % MCV 89.5 (80-100) fL MCH 29.8 (26-34) PG MCHC 33.3 (30-36) % RDW 15.7 H (11.6-14.8) % Plt Count 187 (150-400) X10^3/uL Neut % (Auto) Not Reportable Lymph % (Auto) Not Reportable [place] % (Auto) Not Reportable Eos % (Auto) Not Reportable Baso % (Auto) Not Reportable Lymph # (Auto) Not Reportable [place] # (Auto) Not Reportable Baso # (Auto) Not Reportable Total Counted 100 Seg Neutrophils % 59.0 (38-70) % Band Neutrophils % 12.0 H (3-7) % Lymphocytes % (Manual) 13.0 L (25-45) % Atypical Lymphs % 7.0 H ( - 0) % Monocytes % (Manual) 7.0 (2-11) % Eosinophils % (Manual) 1.0 L (2-4) % Metamyelocytes % 1.0 H (-0) % Neutrophils # (Manual) 9088 H (0903-8832) /uL RBC Morphology See below Anisocytosis 1+ H Stomatocytes 2+ H Sodium 131 L (137-145) mmol/L Potassium 3.7 (3.4-5.1) mmol/L Chloride 96 L (98-107) mmol/L Carbon Dioxide 32 (22-32) mmol/L BUN 22 H (7-17) mg/dL Creatinine 0.52 (0.52-1.04) mg/dL Estimated GFR > 60.0 (>60) mL/min BUN/Creatinine Ratio 42.3 H (6-22) Glucose 92 (70-100) mg/dL Calcium 8.2 L (8.4-10.2) mg/dL Imaging Data CT scan - head: Radiologist's Impression: PROCEDURE: CT HEAD/BRAIN WO CON INDICATIONS: Severe left-sided headache TECHNIQUE: Noncontrast 4.5 mm thick angled axial sections acquired from the foramen magnum to the vertex, with coronal and sagittal reformats. For radiation dose reduction, the following was used: automated exposure control, adjustment of mA and/or kV according to patient size. COMPARISON: None. FINDINGS: Image quality: Excellent. CSF spaces: Basal cisterns are patent. No extra-axial fluid collections. Ventricles are normal in size and shape. Brain: No midline shift. No intracranial masses or hemorrhage. Felipe-white matter interface is normal. Skull and face: Calvarium and visualized facial bones are intact, without suspicious lesions. Sinuses: Visualized sinuses and mastoids are clear. IMPRESSION: No acute intracranial disease process. Dictated by: Sofía Benton MD, PhD on 09/13/2020 at 7:30 Approved by: Sofía Benton MD, PhD on 09/13/2020 at 7:32 MDM Narrative Medical decision making narrative: Patient signed out to me by Dr. Espinal. The seen evaluated patient myself. She is lying in a dark room appears weak. She says headache with photophobia. She overall feels weak but no focal deficits. She feels like her face is puffy but is chronically on prednisone I am unsure why she says auto immune after a pneumonia. Of she says her throat feels swollen but that has been that way they have been working on her thyroid. She denies any fever or pharyngeal soreness. No meningeal signs. He has not been exposed to COVID. She continues to have headache CT just came back as negative. Will give her Toradol. Headache is completely gone after Toradol she is feeling much better. Feels ready and able to go home. Discharge Plan Departure Patient Disposition: Home Clinical Impression: Headache Qualifiers: Headache type: unspecified Headache chronicity pattern: unspecified pattern Intractability: not intractable Qualified Code(s): R51.9 - Headache, unspecified Discharge Date/Time: 09/13/20 09:17 Instructions: DI for Headache Activity Restrictions/Additional Instructions: *You have been diagnosed with headache *What to do: Recommend resting and increasing fluid as tolerated *Continue to take medications as directed Tylenol 650 mg every 4-6 hours if needed for pain *Follow up with your primary care provider in 2-3 days *Return to ER if you should have worsening headache weakness vision changes difficulty speaking or any new, worsening or concerning symptoms Prescriptions: No Action codeine-guaifenesin 10-100 mg/5 mL liquid 10 ml PO Q6H PRN (Reason: cough) Qty: 120 RF: 0 Referrals: Janett Don ARNP [Primary Care Provider] -
[2020-09-13] MEDS: METOCLOPRAMIDE 10 MG/2 ML INJ IV (06:46)
[2020-09-13] MEDS: SODIUM CHLORIDE 0.9% 1,000 ML 1000 ML IV (06:46)
[2020-09-13] MEDS: diphenhydrAMINE 50 MG/ML VIAL 25 MG IV (06:47)
--- NOTE | 2020-09-13 07:25 | DI.CT.S_ITS ---
PROCEDURE: CT HEAD/BRAIN WO CON INDICATIONS: Severe left-sided headache TECHNIQUE: Noncontrast 4.5 mm thick angled axial sections acquired from the foramen magnum to the vertex, with coronal and sagittal reformats. For radiation dose reduction, the following was used: automated exposure control, adjustment of mA and/or kV according to patient size. COMPARISON: None. FINDINGS: Image quality: Excellent. CSF spaces: Basal cisterns are patent. No extra-axial fluid collections. Ventricles are normal in size and shape. Brain: No midline shift. No intracranial masses or hemorrhage. Felipe-white matter interface is normal. Skull and face: Calvarium and visualized facial bones are intact, without suspicious lesions. Sinuses: Visualized sinuses and mastoids are clear. IMPRESSION: No acute intracranial disease process. Dictated by: Sofía Benton MD, PhD on 09/13/2020 at 7:30 Approved by: Sofía Benton MD, PhD on 09/13/2020 at 7:32
[2020-09-13 07:43] LABS: Hematocrit 39.4 % (36-46); Hemoglobin 13.1 g/dL (12.0-16.0); Mean Corpuscular HGB Conc 33.3 % (30-36); Mean Corpuscular Hemoglobin 29.8 PG (26-34); Mean Corpuscular Volume 89.5 fL (80-100); Platelet Count 187 X10^3/uL (150-400); Red Cell Distribution Width 15.7 % (11.6-14.8); White Blood Cell Count 12.8 X10^3/uL (4.5-11.0)
[2020-09-13 07:44] LABS: Add Manual Diff / Slide Review YES
[2020-09-13 07:49] LABS: BUN Creatinine Ratio 42.3 (6-22); Blood Urea Nitrogen 22 mg/dL (7-17); Calcium 8.2 mg/dL (8.4-10.2); Carbon Dioxide 32 mmol/L (22-32); Chloride 96 mmol/L (98-107); Estimated Glomerular Filt Rate > 60.0 mL/min (>60); Glucose 92 mg/dL (70-100); HEMOLYSIS < 15 (0-50); Potassium 3.7 mmol/L (3.4-5.1); Sodium 131 mmol/L (137-145)
[2020-09-13] MEDS: KETOROLAC 60 MG/2 ML VIAL 30 MG IV (08:04)
[2020-09-13 08:34] LABS: Neutrophils Absolute Manual 9088 /uL (3000-5900); Total Cells Counted 100
[2020-09-13 08:35] LABS: Anisocytosis 1+; Stomatocytes 2+
== END 2020-09-13 09:17 | disposition home or self-care (01) ==
PROVIDERS: Emergency Medicine; Emergency Provider Emergency Medicine; PCP Nurse Practitioner Family
DX: R51.9 Headache, unspecified (principal); R11.10 Vomiting, unspecified; J02.9 Acute pharyngitis, unspecified
CPT/HCPCS: 36415; 70450; 80048; 85025; 96361; 96374; 96375; 99284; J1200; J1885; J2765

== ENCOUNTER → 2020-11-26 13:53 | Outpatient (CLI) | payer OTHER, SELFPAY ==
--- NOTE | 2020-11-26 | DI.US.S_ITS ---
PROCEDURE: US THYROID INDICATIONS: NONTOXIC GOITER TECHNIQUE: Real-time scanning was performed of the thyroid gland, with image documentation. COMPARISON: [facility], CT, CT ANGIO CHEST PE PROTOCOL, 03/21/2020, 16:21. FINDINGS: Right: Thyroid lobe measures 6.1 x 2 x 2.1 cm. Left: Thyroid lobe measures 4.9 x 2.1 x 1.7 cm. Isthmus: 4.7 mm thick. The thyroid demonstrates a diffusely heterogeneous appearance, without focal nodules identified. IMPRESSION: Diffusely heterogeneous thyroid, without focal nodules seen. Mildly enlarged right thyroid. Dictated by: Jah Mcmullen M.D. on 11/26/2020 at 14:29 Approved by: Jah Mcmullen M.D. on 11/26/2020 at 14:30
== END ==
PROVIDERS: PCP Nurse Practitioner Family; Referring Provider Nurse Practitioner Family; Visit Provider Nurse Practitioner Family
DX: E04.9 Nontoxic goiter, unspecified (principal)
CPT/HCPCS: 76536

== ENCOUNTER → 2021-02-19 10:42 | Outpatient (CLI) | payer OTHER, SELFPAY ==
[2021-02-19] MEDS: COVID-19 VACC #1, MRNA(MOD) 100 MCG/0.5 ML VIAL IM (11:01)
== END ==
PROVIDERS: PCP Nurse Practitioner Family; Visit Provider Internal Medicine
DX: Z23 Encounter for immunization (principal)
CPT/HCPCS: 0011A; 91301

== ENCOUNTER → 2021-03-19 11:05 | Outpatient (CLI) | payer OTHER, SELFPAY ==
[2021-03-19] MEDS: COVID-19 VACC #2, MRNA(MOD) 100 MCG/0.5 ML VIAL IM (11:19)
== END ==
PROVIDERS: PCP Nurse Practitioner Family; Visit Provider Internal Medicine
DX: Z23 Encounter for immunization (principal)
CPT/HCPCS: 0012A; 91301

== ENCOUNTER → 2021-09-05 09:09 | Outpatient (CLI) | payer OTHER, SELFPAY ==
[2021-09-05 10:09] LABS: Add Manual Diff / Slide Review NO; Basophils Absolute Auto 0 /uL (0-100); Basophils Percent Auto 0.2 % (0-2); Eosinophils Absolute Auto 100 /uL (0-450); Eosinophils Percent Auto 0.6 % (2-4); Hematocrit 41.8 % (36-46); Hemoglobin 13.4 g/dL (12.0-16.0); Lymphocytes Absolute Auto 2900 /uL (1100-4500); Lymphocytes Percent Auto 14.8 % (25-40); Mean Corpuscular Hemoglobin 28.3 PG (26-34); Mean Corpuscular Volume 88.4 fL (80-100); Monocytes Absolute Auto 1200 /uL (0-900); Monocytes Percent Auto 6.1 % (3-14); Neutrophils Absolute Auto 15600 /uL (1500-7000); Neutrophils Percent Auto 78.3 % (50-75); Platelet Count 262 X10^3/uL (150-400); Red Blood Cell Count 4.73 X10^6/uL (4.0-5.2); Red Cell Distribution Width 14.5 % (11.6-14.8); White Blood Cell Count 19.9 X10^3/uL (4.5-11.0)
[2021-09-05 10:55] LABS: Alanine Aminotransferase 22 IU/L (<35); Albumin 4.3 g/dL (3.5-5.0); Alkaline Phosphatase 47 U/L (38-126); Aspartate Aminotransferase 24 IU/L (14-36); BUN Creatinine Ratio 22.7 (6-22); Bilirubin Total 0.5 mg/dL (0.2-1.3); Blood Urea Nitrogen 15 mg/dL (7-17); Calcium 9.5 mg/dL (8.4-10.2); Carbon Dioxide 25 mmol/L (22-32); Chloride 105 mmol/L (98-107); Estimated Glomerular Filt Rate > 60.0 mL/min (>60); Globulin 2.1 g/dL (1.7-4.1); Glucose 94 mg/dL (70-100); HEMOLYSIS < 15 (0-50); Potassium 3.6 mmol/L (3.4-5.1); Sodium 140 mmol/L (137-145); Total Protein 6.4 g/dL (6.3-8.2)
== END ==
PROVIDERS: PCP Family Medicine; Referring Provider Internal Medicine; Visit Provider Internal Medicine
DX: J84.9 Interstitial pulmonary disease, unspecified (principal)
CPT/HCPCS: 36415; 80053; 85025

== ENCOUNTER → 2022-04-23 08:03 | Outpatient (CLI) | payer OTHER, MEDICAID, SELFPAY ==
[2022-04-23 09:11] LABS: Add Manual Diff / Slide Review NO; Basophils Absolute Auto 100 /uL (0-100); Basophils Percent Auto 1.3 % (0-2); Eosinophils Absolute Auto 200 /uL (0-450); Eosinophils Percent Auto 3.3 % (2-4); Hematocrit 35.7 % (36-46); Hemoglobin 11.8 g/dL (12.0-16.0); Lymphocytes Absolute Auto 1900 /uL (1100-4500); Lymphocytes Percent Auto 32.2 % (25-40); Mean Corpuscular HGB Conc 33.1 % (30-36); Mean Corpuscular Hemoglobin 28.7 PG (26-34); Mean Corpuscular Volume 86.7 fL (80-100); Monocytes Absolute Auto 700 /uL (0-900); Monocytes Percent Auto 11.6 % (3-14); Neutrophils Absolute Auto 3100 /uL (1500-7000); Neutrophils Percent Auto 51.6 % (50-75); Platelet Count 279 X10^3/uL (150-400); Red Blood Cell Count 4.12 X10^6/uL (4.0-5.2); Red Cell Distribution Width 14.2 % (11.6-14.8)
[2022-04-23 09:21] LABS: Erythrocyte Sedimentation Rate 20 MM/HR (0-20)
[2022-04-23 10:18] LABS: Alanine Aminotransferase 50 IU/L (<35); Albumin 4.1 g/dL (3.5-5.0); Albumin Globulin Ratio 1.5 (1.0-2.8); Alkaline Phosphatase 60 U/L (38-126); Aspartate Aminotransferase 50 IU/L (14-36); Bilirubin Total 0.5 mg/dL (0.2-1.3); Blood Urea Nitrogen 12 mg/dL (7-17); C-Reactive Protein Quant < 0.5 mg/dL (<1.0); Calcium 8.9 mg/dL (8.4-10.2); Carbon Dioxide 25 mmol/L (22-32); Chloride 110 mmol/L (98-107); Estimated Glomerular Filt Rate > 60 mL/min (>60); Globulin 2.7 g/dL (1.7-4.1); Glucose 102 mg/dL (70-100); HEMOLYSIS < 15 (0-50); Potassium 3.5 mmol/L (3.4-5.1); Sodium 120 mmol/L (137-145); Total Protein 6.8 g/dL (6.3-8.2)
[2022-04-23 15:48] LABS: Hepatitis B Surface Antigen NEGATIVE s/c (NEGATIVE)
[2022-04-23 22:13] LABS: Hepatitis B Surf AB Quant 4.5 mIU/mL (Immunity>9.9)
== END ==
PROVIDERS: PCP Family Medicine; Referring Provider Internal Medicine Rheumatology; Visit Provider Internal Medicine Rheumatology
DX: B19.10 Unspecified viral hepatitis B without hepatic coma (principal); M05.79 Rheumatoid arthritis with rheumatoid factor of multiple sites without organ or systems involvement
CPT/HCPCS: 36415; 80053; 85025; 85651; 86140; 86706; 87340

== ENCOUNTER 2022-04-23 15:52 | Emergency (ER) | payer OTHER, MEDICAID, SELFPAY ==
[2022-04-23] VITALS (7 sets, daily range): BP systolic 122–129; BP diastolic 57–75; PULSE 71–98; RESP 22–41; TEMP 37.2; O2SAT 99–100; BMI 29.6
--- NOTE | 2022-04-23 16:05 | DI.RAD.S_ITS ---
PROCEDURE: XR CHEST 1V INDICATIONS: cough TECHNIQUE: One view of the chest was acquired. COMPARISON: [facility], CT, CT HIGH RESOLUTION CHEST, 11/12/2021, 9:42. [facility], CR, XR CHEST 2V, 05/03/2020, 15:17. FINDINGS: Surgical changes and devices: None. Lungs and pleura: Chronic increased interstitial reticular markings are noted scattered in bilateral lung hernandez unchanged from prior studies. No definite focal infiltrate. No pleural effusions or pneumothorax. Mediastinum: Mediastinal contours appear normal. Heart size is normal. Bones and chest wall: No suspicious bony lesions. Overlying soft tissues appear unremarkable. IMPRESSION: Increased interstitial lung markings bilaterally unchanged from prior studies. No definite focal infiltrate. No pleural effusion or pneumothorax. Dictated by: Shekhar Granados M.D. on 04/23/2022 at 16:17 Approved by: Shekhar Granados M.D. on 04/23/2022 at 16:19
[2022-04-23 16:46] LABS: Add Manual Diff / Slide Review NO; Basophils Absolute Auto 100 /uL (0-100); Basophils Percent Auto 1.2 % (0-2); Eosinophils Absolute Auto 200 /uL (0-450); Eosinophils Percent Auto 2.6 % (2-4); Hematocrit 36.6 % (36-46); Hemoglobin 11.7 g/dL (12.0-16.0); Lymphocytes Absolute Auto 2500 /uL (1100-4500); Lymphocytes Percent Auto 34.7 % (25-40); Mean Corpuscular HGB Conc 32.1 % (30-36); Mean Corpuscular Hemoglobin 27.8 PG (26-34); Mean Corpuscular Volume 86.8 fL (80-100); Monocytes Absolute Auto 900 /uL (0-900); Monocytes Percent Auto 12.6 % (3-14); Neutrophils Absolute Auto 3500 /uL (1500-7000); Neutrophils Percent Auto 48.9 % (50-75); Platelet Count 289 X10^3/uL (150-400); Red Blood Cell Count 4.22 X10^6/uL (4.0-5.2); Red Cell Distribution Width 14.4 % (11.6-14.8); White Blood Cell Count 7.2 X10^3/uL (4.5-11.0)
[2022-04-23 16:47] LABS: COVID19 -Nasal RAPID Negative (Negative)
[2022-04-23 16:57] LABS: Alanine Aminotransferase 46 IU/L (<35); Albumin 4.3 g/dL (3.5-5.0); Albumin Globulin Ratio 1.5 (1.0-2.8); Alkaline Phosphatase 55 U/L (38-126); Aspartate Aminotransferase 51 IU/L (14-36); BUN Creatinine Ratio 21.8 (6-22); Bilirubin Total 0.5 mg/dL (0.2-1.3); Blood Urea Nitrogen 12 mg/dL (7-17); Calcium 8.8 mg/dL (8.4-10.2); Carbon Dioxide 26 mmol/L (22-32); Chloride 108 mmol/L (98-107); Estimated Glomerular Filt Rate > 60 mL/min (>60); Globulin 2.8 g/dL (1.7-4.1); Glucose 107 mg/dL (70-100); HEMOLYSIS < 15 (0-50); Potassium 3.5 mmol/L (3.4-5.1); Sodium 141 mmol/L (137-145); Total Protein 7.1 g/dL (6.3-8.2)
--- NOTE | 2022-04-23 17:22 | ED_ITS ---
HPI - Recheck/Abnormal Lab/Rx <Tyler Duong PA-C - Last Filed: 04/23/22 19:42> General Chief Complaint: Recheck/Abnormal Lab/Rx Stated Complaint: abnormal labs, sent by MD Time Seen by Provider: 04/23/22 16:26 Source: patient Mode of arrival: Ambulatory History of Present Illness HPI narrative: Patient is a 56-year-old female with a history of pulmonary fibrosis who presents to the emergency department for an evaluation of a lab abnormality. Patient explains that she was sent here to the emergency department by her primary care provider after finding hyponatremia on routine lab work. Patient's sodium was recorded at 120 on labs obtained earlier today. Patient explains that over the past week or so she has been experiencing generalized weakness, headache, nausea, decreased urine production, and mild abdominal pain. She denies any associated fever, chills, chest pain, vomiting, constipation, dysur ia, hematuria, syncope, seizures, changes in vision or hearing, confusion, behavior abnormalities, or any other concerning symptoms. No further concerns were voiced at this time. Related Data Previous Rx's Medication Instructions Recorded codeine 10 mg-guaifenesin 100 mg/5 10 ml PO Q6H PRN cough #120 mL 03/21/20 mL oral liquid Allergies Allergy/AdvReac Type Severity Reaction Status Date / Time No Known Drug Allergies Allergy Verified 06/03/20 13:53 Review of Systems <Tyler Duong PA-C - Last Filed: 04/23/22 19:42> Constitutional Constitutional: Denies chills, Denies fatigue, Denies fever(s), Denies frequent falls, Reports headache(s), Denies lethargy and Reports weakness ENT Ears, Nose, Mouth, and Throat: Reports headache(s) and Denies neck pain Cardiovascular Cardiovascular: Denies chest pain, Denies irregular heart rhythm, Denies lightheadedness, Denies palpitations, Denies dyspnea, Denies dyspnea on exertion and Denies orthopnea Respiratory Respiratory: Denies dyspnea and Denies dyspnea on exertion Gastrointestinal Gastrointestinal: Reports abdominal pain, Denies change in bowel habits, Denies change in stool character, Denies constipation, Reports nausea and Denies vomiting Genitourinary Genitourinary: Denies hematuria, Denies flank pain, Denies urinary incontinence, Denies urinary urgency and Reports other (Decreased micturition) Musculoskeletal Musculoskeletal: Denies back pain, Denies muscle weakness, Denies neck pain, Denies numbness and Denies tingling Integumentary/Breasts Skin/Breast: Denies pruritus, Denies erythema, Denies rash and Denies wounds Neurologic Neurologic: Denies frequent falls, Reports headache(s), Denies numbness, Denies tingling and Reports weakness Endocrine Endocrine: Denies fatigue and Denies palpitations Patient History <Tyler Duong PA-C - Last Filed: 04/23/22 19:42> Medical History (Updated 04/23/22 @ 17:40 by Tyler Duong PA-C) Pneumonia Surgical History Status post hemorrhoidectomy Social History Smoking Status: Never smoker Smoking Status: Never smoker Substance Use Type: does not use Exam <Tyler Duong PA-C - Last Filed: 04/23/22 19:42> Narrative Exam Narrative: GENERAL: 56 year old patient appears stated age. Well-developed patient, in no acute distress. HEAD: Atraumatic. Normocephalic. EYES: Pupils equal round and reactive. Extraocular motions intact. No scleral icterus. No injection or drainage. ENT: Nose without bleeding, purulent drainage. Throat without erythema, tonsilla r hypertrophy or exudate. Airway patent. NECK: Trachea midline. Non tender CARDIOVASCULAR: Regular rate and rhythm without murmurs, gallops, or rubs. RESPIRATORY: Scattered rhonchi auscultated throughout all lobes of the lungs bilaterally. Patient breathing comfortably on 2 L nasal cannula (patient on 2 L at home at baseline). Patient speaking in full sentences with occasional cough on exam. GASTROINTESTINAL: Abdomen soft, nondistended. Mild tenderness to palpation appreciated in the bilateral lower quadrants of the abdomen without significant guarding or rebound tenderness. Negative psoas sign. No overlying masses, erythema, or ecchymosis noted. EXTREMITIES: No edema or joint tenderness. BACK: Nontender without deformity or crepitance. No flank tenderness. NEURO: AOx3. SKIN: No rash or erythema of visible areas Initial Vital Signs Initial Vital Signs: Vital Signs Temperature 99.0 F 04/23/22 15:55 Pulse Rate 98 H 04/23/22 15:55 Respiratory Rate 22 04/23/22 15:55 Blood Pressure 124/57 L 04/23/22 15:55 Pulse Oximetry 99 04/23/22 15:55 Oxygen Delivery Method 04/23/22 15:55 Oxygen Flow Rate 2 04/23/22 15:55 <Taina Leigh DO - Last Filed: 04/24/22 07:35> Initial Vital Signs Initial Vital Signs: Vital Signs Temperature 99.0 F 04/23/22 15:55 Pulse Rate 98 H 04/23/22 15:55 Respiratory Rate 22 04/23/22 15:55 Blood Pressure 124/57 L 04/23/22 15:55 Pulse Oximetry 99 04/23/22 15:55 Oxygen Delivery Method 04/23/22 15:55 Oxygen Flow Rate 2 04/23/22 15:55 Course <Tyler Duong PA-C - Last Filed: 04/23/22 19:42> Course Course Narrative: Chest x-ray, CBC, CMP, COVID swab ordered. Chest x-ray does not show significant changes from most recent chest x-ray. Lab studies within normal limits. Orders Ordered: ED Orders 04/23/22 16:02 EKG-12 Lead Stat 04/23/22 16:05 Chest [XR chest 1V] Stat 04/23/22 16:22 COVID19 -Nasal RAPID/Pre-Proc Stat 04/23/22 16:30 CBC Auto Diff [Complete Blood Count AUTO DIFF] Stat CMP [Comprehensive Metabolic Panel] Stat Vital Signs Vital signs: Vital Signs - 8 hr 04/23/22 15:55 04/23/22 16:22 04/23/22 16:23 Temperature 99.0 F Pulse Rate 98 H 90 Respiratory Rate 22 26 H Blood Pressure 124/57 L 122/75 Pulse Oximetry 99 99 Oxygen Delivery Method Nasal Cannula Oxygen Flow Rate 2 2 04/23/22 16:23 04/23/22 16:30 04/23/22 16:38 Temperature Pulse Rate 88 86 Respiratory Rate 32 H 41 H Blood Pressure 129/58 L Pulse Oximetry 99 99 Oxygen Delivery Method Oxygen Flow Rate 2 2 04/23/22 16:38 04/23/22 17:00 04/23/22 17:30 Temperature Pulse Rate 81 74 Respiratory Rate 30 H 30 H Blood Pressure 125/64 Pulse Oximetry 99 100 Oxygen Delivery Method Oxygen Flow Rate 2 2 04/23/22 17:30 Temperature Pulse Rate 71 Respiratory Rate 28 H Blood Pressure Pulse Oximetry 100 Oxygen Delivery Method Oxygen Flow Rate 2 <Taina Leigh DO - Last Filed: 04/24/22 07:35> Orders Ordered: ED Orders 04/23/22 16:02 EKG-12 Lead Stat 04/23/22 16:05 Chest [XR chest 1V] Stat 04/23/22 16:22 COVID19 -Nasal RAPID/Pre-Proc Stat 04/23/22 16:30 CBC Auto Diff [Complete Blood Count AUTO DIFF] Stat CMP [Comprehensive Metabolic Panel] Stat Vital Signs Vital signs: Vital Signs - 8 hr 04/23/22 15:55 04/23/22 16:22 04/23/22 16:23 Temperature 99.0 F Pulse Rate 98 H 90 Respiratory Rate 22 26 H Blood Pressure 124/57 L 122/75 Pulse Oximetry 99 99 Oxygen Delivery Method Nasal Cannula Oxygen Flow Rate 2 2 04/23/22 16:23 04/23/22 16:30 04/23/22 16:38 Temperature Pulse Rate 88 86 Respiratory Rate 32 H 41 H Blood Pressure 129/58 L Pulse Oximetry 99 99 Oxygen Delivery Method Oxygen Flow Rate 2 2 04/23/22 16:38 04/23/22 17:00 04/23/22 17:30 Temperature Pulse Rate 81 74 Respiratory Rate 30 H 30 H Blood Pressure 125/64 Pulse Oximetry 99 100 Oxygen Delivery Method Oxygen Flow Rate 2 2 04/23/22 17:30 Temperature Pulse Rate 71 Respiratory Rate 28 H Blood Pressure Pulse Oximetry 100 Oxygen Delivery Method Oxygen Flow Rate 2 MDM - Recheck/Abnormal Lab/Rx <Tyler Duong PA-C - Last Filed: 04/23/22 19:42> Lab Data Result diagrams: 04/23/22 16:30 04/23/22 16:30 Labs: Lab Results 04/23/22 04/23/22 04/23/22 Range/Units 16:22 16:30 16:30 WBC 7.2 (4.5-11.0) X10^3/uL RBC 4.22 (4.0-5.2) X10^6/uL Hgb 11.7 L (12.0-16.0) g/dL Hct 36.6 (36-46) % MCV 86.8 (80-100) fL MCH 27.8 (26-34) PG MCHC 32.1 (30-36) % RDW 14.4 (11.6-14.8) % Plt Count 289 (150-400) X10^3/uL Neut % (Auto) 48.9 L (50-75) % Lymph % (Auto) 34.7 (25-40) % Campbell % (Auto) 12.6 (3-14) % Eos % (Auto) 2.6 (2-4) % Baso % (Auto) 1.2 (0-2) % Neut # (Auto) 3500 (0379-9941) /uL Lymph # (Auto) 2500 (5690-8993) /uL Campbell # (Auto) 900 (0-900) /uL Eos # (Auto) 200 (0-450) /uL Baso # (Auto) 100 (0-100) /uL Sodium 141 D (137-145) mmol/L Potassium 3.5 (3.4-5.1) mmol/L Chloride 108 H (98-107) mmol/L Carbon Dioxide 26 (22-32) mmol/L BUN 12 (7-17) mg/dL Creatinine 0.55 (0.52-1.04) mg/dL Estimated GFR > 60 (>60) mL/min BUN/Creatinine Ratio 21.8 (6-22) Glucose 107 H (70-100) mg/dL Calcium 8.8 (8.4-10.2) mg/dL Total Bilirubin 0.5 (0.2-1.3) mg/dL AST 51 H (14-36) IU/L ALT 46 H (<35) IU/L Alkaline Phosphatase 55 (38-126) U/L Total Protein 7.1 (6.3-8.2) g/dL Albumin 4.3 (3.5-5.0) g/dL Globulin 2.8 (1.7-4.1) g/dL Albumin/Globulin Ratio 1.5 (1.0-2.8) SARS-CoV-2 (PCR) Negative (Negative) Imaging Data Chest x-ray: Radiologist's Impression: PROCEDURE:? XR CHEST 1V ? INDICATIONS:? cough ? TECHNIQUE:? One view of the chest was acquired.? ? COMPARISON:? [facility], CT, CT HIGH RESOLUTION CHEST, 11/12/2021, 9:42.? [facility], CR, XR CHEST 2V, 05/03/2020, 15:17. ? FINDINGS:? ? Surgical changes and devices:? None.? ? Lungs and pleura:? Chronic increased interstitial reticular markings are noted scattered in bilateral lung hernandez unchanged from prior studies.? No definite focal infiltrate.? No pleural effusions or pneumothorax.? ? Mediastinum:? Mediastinal contours appear normal.? Heart size is normal.? ? Bones and chest wall:? No suspicious bony lesions.? Overlying soft tissues appear unremarkable.? ? IMPRESSION:? Increased interstitial lung markings bilaterally unchanged from prior studies.? No definite focal infiltrate.? No pleural effusion or pneumothorax. ? ? Dictated by: Shekhar Granados M.D. on 04/23/2022 at 16:17 ? ? Approved by: Shekhar Granados M.D. on 04/23/2022 at 16:19 ? MDM Narrative Medical decision making narrative: Differential diagnosis to consider but not limited to electrolyte derangement versus hyponatremia versus SIADH. Lab studies obtained in the emergency department today were within normal limits. Chest x-ray is not significantly changed from last. I discussed these results with the patient and urged her to follow up with primary care for further evaluation and management. Patient expresses understanding and agrees to plan. I discussed very strict return precautions with the patient prior to discharge. <Taina Leigh, - Last Filed: 04/24/22 07:35> Lab Data Labs: Lab Results 04/23/22 04/23/22 04/23/22 Range/Units 16:22 16:30 16:30 WBC 7.2 (4.5-11.0) X10^3/uL RBC 4.22 (4.0-5.2) X10^6/uL Hgb 11.7 L (12.0-16.0) g/dL Hct 36.6 (36-46) % MCV 86.8 (80-100) fL MCH 27.8 (26-34) PG MCHC 32.1 (30-36) % RDW 14.4 (11.6-14.8) % Plt Count 289 (150-400) X10^3/uL Neut % (Auto) 48.9 L (50-75) % Lymph % (Auto) 34.7 (25-40) % Campbell % (Auto) 12.6 (3-14) % Eos % (Auto) 2.6 (2-4) % Baso % (Auto) 1.2 (0-2) % Neut # (Auto) 3500 (1149-4355) /uL Lymph # (Auto) 2500 (7750-2729) /uL Campbell # (Auto) 900 (0-900) /uL Eos # (Auto) 200 (0-450) /uL Baso # (Auto) 100 (0-100) /uL Sodium 141 D (137-145) mmol/L Potassium 3.5 (3.4-5.1) mmol/L Chloride 108 H (98-107) mmol/L Carbon Dioxide 26 (22-32) mmol/L BUN 12 (7-17) mg/dL Creatinine 0.55 (0.52-1.04) mg/dL Estimated GFR > 60 (>60) mL/min BUN/Creatinine Ratio 21.8 (6-22) Glucose 107 H (70-100) mg/dL Calcium 8.8 (8.4-10.2) mg/dL Total Bilirubin 0.5 (0.2-1.3) mg/dL AST 51 H (14-36) IU/L ALT 46 H (<35) IU/L Alkaline Phosphatase 55 (38-126) U/L Total Protein 7.1 (6.3-8.2) g/dL Albumin 4.3 (3.5-5.0) g/dL Globulin 2.8 (1.7-4.1) g/dL Albumin/Globulin Ratio 1.5 (1.0-2.8) SARS-CoV-2 (PCR) Negative (Negative) Discharge Plan Departure Patient Disposition: Home Clinical Impression: Electrolyte abnormality Instructions: DI for Hyponatremia Activity Restrictions/Additional Instructions: *You have been diagnosed with electrolyte abnormality *What to do: *Please continue to take your regular medications as directed. [ ] New medication prescriptions sent to your pharmacy: [ ] [ ] New medication written as a paper prescription [X] No new medications given You were evaluated in the emergency department today for a lab abnormality. Lab studies obtained here in the emergency department were within normal limits. Additionally, chest x-ray obtained today did not show significant changes from the last chest x-ray. I recommend following up with the primary care provider for further evaluation and management. Please do not hesitate to return to the emergency department if you experience worsening confusion, behavior abnormalities, loss of consciousness, persistent vomiting, or any other concerning symptoms. *Please follow up with your primary care provider in 2-3 days, call for an appointment. Let them know you were seen in the Emergency Department and that we ask that you be seen in follow up. We will electronically transmit a record of today's note if your PCP is in our system *If you do not have a primary care provider please contact the [facility] Resource line at [phone]. They will ask some questions about your medical history and help get you set up with a doctor in the community. *Return to Emergency Department if you should have any new, worsening or concerning symptoms, such as fever greater than 101 F, shaking chills, worsening pain, persistent vomiting or other bothersome symptoms. Prescriptions: No Action codeine-guaifenesin 10-100 mg/5 mL liquid 10 ml PO Q6H PRN (Reason: cough) Qty: 120 0RF Referrals: Kenji Pop MD [Primary Care Provider] - Visit Report Forms: Patient Portal/API <Taina Leigh DO - Last Filed: 04/24/22 07:35> Cosign ED Attending Bandarature Attestation: I was immediately available in the department for consultation. Documentation has been reviewed. I agree with assessment and plan.
== END 2022-04-23 17:44 | disposition home or self-care (01) ==
PROVIDERS: Emergency Medicine; Emergency Provider Physician Assistant; PCP Family Medicine; Referring Provider Internal Medicine Rheumatology
DX: E87.1 Hypo-osmolality and hyponatremia (principal); R51.9 Headache, unspecified; R05.9 Cough, unspecified; R07.9 Chest pain, unspecified; Z20.822 Contact with and (suspected) exposure to COVID-19; B19.10 Unspecified viral hepatitis B without hepatic coma; M05.79 Rheumatoid arthritis with rheumatoid factor of multiple sites without organ or systems involvement
CPT/HCPCS: 36415; 71045; 80053; 85025; 85651; 86140; 86706; 87340; 87635; 93005; 93010; 99284; C9803

== ENCOUNTER → 2022-10-20 11:59 | Outpatient (CLI) | payer OTHER, MEDICAID, SELFPAY ==
--- NOTE | 2022-10-20 12:00 | DI.MG.S_ITS ---
BILATERAL DIGITAL DIAGNOSTIC MAMMOGRAM 3D/2D SHORT-TERM FOLLOW-UP: 10/20/2022 CLINICAL: Short term follow up of the right breast, due for bilateral imaging. Comparison is made to exams dated: 10/09/2019 mammogram, 09/12/2019 mammogram, 09/09/2018 mammogram, and 01/23/2016 mammogram - [facility]. Both breasts are heterogeneously dense, which may obscure small masses (category c / 51-75% glandular tissue). Asymmetry in the right breast middle depth medial region is no longer seen. This was not seen on the prior ultrasound. No other significant masses, calcifications, or other findings are seen in either breast. IMPRESSION: NEGATIVE There is no mammographic evidence of malignancy. A 1 year screening mammogram is recommended. Exam findings were conveyed to the patient. Based on the Tyrer Cuzick model (a risk assessment model) the patient's lifetime risk is 10.2% and her 10 year risk is 2.9%. According to the ACR, ACS, and NCCN guidelines, an annual breast MRI exam along with mammogram is recommended if the patient's lifetime risk is 20% or greater. This exam was interpreted at Station ID: [id number]. NOTE: For mammograms, a report in lay terms will be sent to the patient. Approximately 15% of breast malignancies will not be visualized mammographically. In the management of a palpable breast mass, a negative mammogram must not discourage biopsy of a clinically suspicious lesion. Electronically Signed By: Deuce Wesley M.D. slc/:10/20/2022 12:51:10 letter sent: Normal Exam ACR BI-RADS Category 1: Negative [id number]
== END ==
PROVIDERS: PCP Family Medicine; Referring Provider Family Medicine; Visit Provider Family Medicine
DX: R92.8 Other abnormal and inconclusive findings on diagnostic imaging of breast (principal)
CPT/HCPCS: 77066; G0279

== ENCOUNTER → 2022-12-03 14:24 | Outpatient (CLI) | payer OTHER, MEDICAID, SELFPAY ==
[2022-12-03 15:05] LABS: Reticulocyte Count, Percent 2.1 % (1.1-2.6)
[2022-12-03 15:08] LABS: Add Manual Diff / Slide Review NO; Basophils Absolute Auto 100 /uL (0-100); Eosinophils Absolute Auto 100 /uL (0-450); Eosinophils Percent Auto 0.6 % (2-4); Hematocrit 36.7 % (36-46); Hemoglobin 11.9 g/dL (12.0-16.0); Lymphocytes Absolute Auto 2100 /uL (1100-4500); Lymphocytes Percent Auto 19.7 % (25-40); Mean Corpuscular HGB Conc 32.4 % (30-36); Mean Corpuscular Hemoglobin 31.2 PG (26-34); Mean Corpuscular Volume 96.5 fL (80-100); Monocytes Absolute Auto 700 /uL (0-900); Monocytes Percent Auto 6.8 % (3-14); Neutrophils Absolute Auto 7800 /uL (1500-7000); Neutrophils Percent Auto 71.9 % (50-75); Platelet Count 319 X10^3/uL (150-400); Red Blood Cell Count 3.81 X10^6/uL (4.0-5.2); Red Cell Distribution Width 14.1 % (11.6-14.8); White Blood Cell Count 10.8 X10^3/uL (4.5-11.0)
[2022-12-03 15:28] LABS: Lactate Dehydrogenase 235 U/L (120-246)
[2022-12-05 03:09] LABS: Haptoglobin 94 mg/dL (33-346)
== END ==
PROVIDERS: PCP Family Medicine; Referring Provider Internal Medicine Rheumatology; Visit Provider Internal Medicine Rheumatology
DX: D59.2 Drug-induced nonautoimmune hemolytic anemia (principal)
CPT/HCPCS: 36415; 83010; 83615; 85025; 85045; 86880

== ENCOUNTER → 2023-10-23 09:30 | Outpatient (CLI) | payer OTHER, MEDICAID, SELFPAY ==
--- NOTE | 2023-10-23 | DI.MG.S_ITS ---
BILATERAL DIGITAL SCREENING MAMMOGRAM 3D/2D WITH CAD: 10/23/2023 CLINICAL: Routine screening. Comparison is made to exams dated: 10/20/2022 mammogram, 10/09/2019 mammogram, 09/12/2019 mammogram, and 09/09/2018 mammogram - . Both breasts are heterogeneously dense, which may obscure small masses (category c / 51-75% glandular tissue). Current study was also evaluated with a Computer Aided Detection (CAD) system. No significant masses, calcifications, or other findings are seen in either breast. There has been no significant interval change. IMPRESSION: NEGATIVE There is no mammographic evidence of malignancy. A 1 year screening mammogram is recommended. Based on the Tyrer Cuzick model (a risk assessment model) the patient's lifetime risk is 10.1% and her 10 year risk is 3.1%. According to the ACR, ACS, and NCCN guidelines, an annual breast MRI exam along with mammogram is recommended if the patient's lifetime risk is 20% or greater. This exam was interpreted at Station ID: [id number]. NOTE: For mammograms, a report in lay terms will be sent to the patient. Approximately 15% of breast malignancies will not be visualized mammographically. In the management of a palpable breast mass, a negative mammogram must not discourage biopsy of a clinically suspicious lesion. Electronically Signed By: Torsten villareal/carmen:10/25/2023 10:20:19 letter sent: Normal Exam ACR BI-RADS Category 1: Negative [id number]
== END ==
PROVIDERS: PCP Family Medicine; Referring Provider Family Medicine; Visit Provider Family Medicine
DX: Z12.31 Encounter for screening mammogram for malignant neoplasm of breast (principal)
CPT/HCPCS: 77063; 77067

== ENCOUNTER → 2024-04-26 08:16 | Outpatient (CLI) | payer OTHER, MEDICAID, SELFPAY | PROVIDERS: PCP Family Medicine; Referring Provider Internal Medicine; Visit Provider Internal Medicine | DX: M35.1 Other overlap syndromes (principal); J96.11 Chronic respiratory failure with hypoxia; J84.9 Interstitial pulmonary disease, unspecified | CPT/HCPCS: 94070; 94618 ==

== ENCOUNTER → 2024-06-09 09:47 | Outpatient (CLI) | payer OTHER, MEDICAID, SELFPAY ==
--- NOTE | 2024-06-09 09:48 | DI.NM.S_ITS ---
PROCEDURE: NM CHARLENE PERF SPECT R&S PHARM Rest and pharmacological stress myocardial perfusion SPECT with gated imaging and ejection fraction RADIOPHARMACEUTICAL: 10.8 mCi Tc-99m tetrafosmin IV at rest and 25.5 mCi Tc-99m tetrafosmin IV at peak effect of pharmacological stress. Arc-[id number]-[id number] was performed. INDICATIONS: ANGINA OF EFFORT TECHNIQUE: Radiopharmaceutical was injected at peak stress test, and also at rest. SPECT images were obtained. SPECT myocardial perfusion images were displayed in short axis, horizontal long axis, and vertical long axis views. Gated images were reviewed using Experenti software. COMPARISON: None. CARDIAC STRESS: A pharmacologic stress test was performed under the supervision of an attending staff, using an infusion of lexiscan 0.4mg IV X1. Hemodynamic data: There is normal blood pressure and heart rate response to pharmacologic stress. Symptoms: The patient had 3/10 non-diagnostic chest pain with lexiscan. Aminophylline: none EKG: No diagnostic changes of ischemia; rare PVCs present. FINDINGS: Raw data: There is good myocardial uptake of radiotracer. No significant motion artifacts. Ytvx-xx-jjcll ratio is 0.27 (normal is less than 0.38 for tetrafosmin tracer). Left ventricle function: Gated images demonstrate normal left ventricular wall thickening. No segmental wall motion abnormalities. No transient ischemic dilation; TID is 0.85 (normal less than 1.3). Left ventricle resting end diastolic volume is 50mL. Left ventricle stress ejection fraction is 88%; normal range is above 45%. Myocardial perfusion: There is a mildly intense distal anterior wall perfusion defect at rest that improves with stress suggesting breast attenuation artifact. No ischemia and no definite prior infarction. SSS 0. IMPRESSION: Low risk, probably normal pharm nuclear stress test. 1) There is a mildly intense distal anterior wall perfusion defect at rest that improves with stress suggesting breast attenuation artifact. No ischemia and no definite prior infarction. SSS 0. 2) Normal left ventricular size, wall motion, and systolic function (EF post stress 88%). 3) No ST changes with lexsican. 4) 3/10 non-diagnostic chest pain with lexiscan. 5) No prior nuclear stress test available for comparison. Dictated by: Nicholas Zaman MD on 06/09/2024 at 16:40 Approved by: Nicholas Zaman MD on 06/09/2024 at 16:43
== END ==
PROVIDERS: PCP Family Medicine; Referring Provider Internal Medicine; Visit Provider Internal Medicine
DX: I20.89 Other forms of angina pectoris (principal)
CPT/HCPCS: 78452; 93017; A9502; J2785

== ENCOUNTER 2024-06-09 16:30 | Emergency (ER) | payer OTHER, MEDICAID, SELFPAY ==
[2024-06-09] VITALS (7 sets, daily range): BP systolic 122–133; BP diastolic 66–80; PULSE 63–73; RESP 17–24; TEMP 36.6–37.1; O2SAT 100; BMI 25.6
--- NOTE | 2024-06-09 16:37 | EKG_ITS ---
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
--- NOTE | 2024-06-09 16:37 | DI.RAD.S_ITS ---
PROCEDURE: XR CHEST 1V INDICATIONS: chest pain TECHNIQUE: One view of the chest was acquired. COMPARISON: [facility], CT, CT HIGH RESOLUTION CHEST, 11/22/2023, 14:37. [facility], CR, XR CHEST 1V, 04/23/2022, 16:01. FINDINGS: Surgical changes and devices: None. Lungs and pleura: Question small spiculated lesion, right upper lobe. This was not present on the recent high-resolution CT from November,. Chronic interstitial pulmonary fibrosis. No acute infiltrates. No pleural effusions or pneumothorax. Mediastinum: Mediastinal contours appear normal. Heart size is normal. Bones and chest wall: No suspicious bony lesions. Overlying soft tissues appear unremarkable. IMPRESSION: 1. Changes of chronic interstitial pulmonary fibrosis. 2. No focal infiltrates. 3. Question small spiculated nodule, right upper lobe. Comment: Recommend nonemergent CT chest. Dictated by: Dhruv Delgado M.D. on 06/09/2024 at 17:01 Approved by: Dhruv Delgado M.D. on 06/09/2024 at 17:05
[2024-06-09 16:43] LABS: Add Manual Diff / Slide Review NO; Basophils Absolute Auto 100 /uL (0-100); Basophils Percent Auto 0.8 % (0-2); Eosinophils Absolute Auto 0 /uL (0-450); Eosinophils Percent Auto 0.4 % (2-4); Hematocrit 41.1 % (36-46); Hemoglobin 13.4 g/dL (12.0-16.0); Lymphocytes Absolute Auto 2900 /uL (1100-4500); Lymphocytes Percent Auto 23.6 % (25-40); Mean Corpuscular HGB Conc 32.6 % (30-36); Mean Corpuscular Hemoglobin 27.8 PG (26-34); Mean Corpuscular Volume 85.3 fL (80-100); Monocytes Absolute Auto 600 /uL (0-900); Monocytes Percent Auto 5.1 % (3-14); Neutrophils Absolute Auto 8600 /uL (1500-7000); Neutrophils Percent Auto 70.1 % (50-75); Platelet Count 253 X10^3/uL (150-400); Red Blood Cell Count 4.82 X10^6/uL (4.0-5.2); Red Cell Distribution Width 15.8 % (11.6-14.8); White Blood Cell Count 12.3 X10^3/uL (4.5-11.0)
[2024-06-09 16:55] LABS: INR 0.9 (0.9-1.3); Prothrombin Time 10.2 SECONDS (9.4-12.5)
[2024-06-09 16:57] LABS: PTT Partial Thromboplastin Tim 29 SECONDS (25.1-36.5)
[2024-06-09 17:01] LABS: Alanine Aminotransferase 27 IU/L (<35); Albumin 4.8 g/dL (3.5-5.0); Albumin Globulin Ratio 1.7 (1.0-2.8); Alkaline Phosphatase 58 U/L (38-126); Aspartate Aminotransferase 35 IU/L (14-36); BUN Creatinine Ratio 20.8 (6-22); Bilirubin Total 0.7 mg/dL (0.2-1.3); Blood Urea Nitrogen 20 mg/dL (7-17); Calcium 9.6 mg/dL (8.4-10.2); Carbon Dioxide 29 mmol/L (22-32); Chloride 104 mmol/L (98-107); Creatine Kinase 67 U/L (30-135); Estimated Glomerular Filt Rate > 60 mL/min (>60); Globulin 2.9 g/dL (1.7-4.1); Glucose 107 mg/dL (70-100); HEMOLYSIS < 15 (0-50); Lipase 132 U/L (23-300); Magnesium 2.3 mg/dL (1.6-2.3); Potassium 3.7 mmol/L (3.4-5.1); Sodium 141 mmol/L (137-145); Total Protein 7.7 g/dL (6.3-8.2)
[2024-06-09 17:12] LABS: NT-proBNP (BNP-Adult 18+) 70 pg/mL (<125); Troponin I < 0.012 ng/mL (0.01-0.034)
--- NOTE | 2024-06-09 17:34 | PC.NURSE ---
Pt reports feeling weak after getting medication for nuclear stress test. Pt on 2L O2 per baseline. Pt states she was getting the stress test d/t persistent long standing CP
--- NOTE | 2024-06-09 18:16 | ED_ITS ---
HPI - General Adult General Chief complaint: Syncope Stated complaint: Weakness,near syncope after nuclear stress test Time Seen by Provider: 06/09/24 17:59 Source: patient Mode of arrival: Wheelchair History of Present Illness HPI narrative: patient is a 58-year-old female. Has a history of interstitial pulmonary fibrosis. Is on oxygen at home at 2 L . 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 She was getting an outpatient nuclear stress test today. This was ordered after she had some events of the end of last year that sounded like palpitations. She wore a Holter monitor for a period of time that she stated was relatively unremarkable. In further workup of the palpitations stress test was ordered. she did state that when they gave her the medication to increase her heart rate she became acutely short of breath. Things seemed to improve and she was able to complete the stress test. She was stated that she was walking out of the area where she had the test and was walking to her car where she stated that she felt very weak. Became acutely short of breath. Stated that she almost passed out. No chest pain. At the time of my evaluation she stated that she was feeling much better. He was then that she still felt much week but she felt like her respiratory status was back to normal. She was not having any palpitations nor chest pain. Related Data Home Medications Medication Instructions Recorded Confirmed alendronate 70 mg tablet 70 mg PO QWEEK 09/03/23 03/28/24 entecavir 1 mg tablet 1 mg PO DAILY 09/03/23 03/28/24 leflunomide 20 mg tablet 20 mg PO DAILY 09/03/23 03/28/24 levothyroxine 75 mcg capsule 75 mcg PO DAILY 09/03/23 03/28/24 montelukast 10 mg tablet 10 mg PO DAILY 09/03/23 03/28/24 mycophenolate mofetil 500 mg tablet 1.5 g PO Q12H 09/03/23 03/28/24 Previous Rx's Medication Instructions Recorded codeine 10 mg-guaifenesin 100 mg/5 10 ml PO Q6H PRN cough #120 mL 03/21/20 mL oral liquid ipratropium bromide 21 mcg (0.03 1 spray intranasal BID #30 mL 03/28/24 %) nasal spray Allergies Allergy/AdvReac Type Severity Reaction Status Date / Time No Known Drug Allergies Allergy Verified 06/09/24 16:37 Review of Systems Review of Systems ROS Unobtainable: All systems reviewed & are unremarkable except as noted in HPI and below Patient History Medical History Pneumonia Surgical History Status post hemorrhoidectomy Social History Smoking Status: Never smoker Smoking Status: Never smoker Substance Use Type: does not use Exam Initial Vital Signs Initial Vital Signs: Vital Signs Temperature 98.8 F 06/09/24 16:30 Pulse Rate 67 06/09/24 16:30 Respiratory Rate 24 06/09/24 16:30 Blood Pressure 129/80 06/09/24 16:30 Pulse Oximetry 100 06/09/24 16:30 Oxygen Delivery Method Nasal Cannula 06/09/24 16:30 Oxygen Flow Rate 2 06/09/24 16:30 Const General: cooperative, comfortable and No ill appearing HENSC Head: normal to inspection and normocephalic Resp Effort & Inspection: no cough, not labored, no respiratory distress and tachypneic Auscultation: clear to auscultation bilaterally Cardio Rate: regular rate Rhythm: regular rhythm Neuro General: patient alert, patient awake, patient oriented x3 and moves all extremities Extrem General: normal to inspection and capillary refill normal Course Orders Ordered: ED Orders 06/09/24 16:33 Complete Blood Count AUTO DIFF Stat Comprehensive Metabolic Panel Stat Lipase Stat Magnesium Stat NT-proBNP (BNP-Adult 18+) Stat PTT Partial Thromboplastin Prashanth Stat Prothrombin Time INR Stat Troponin & CK Cardiac Panel Stat 06/09/24 16:37 XR chest 1V Stat EKG-12 Lead Stat Vital Signs Vital signs: Vital Signs - 8 hr 06/09/24 17:00 06/09/24 17:00 06/09/24 17:30 Temperature Pulse Rate 73 71 Respiratory Rate 22 21 Blood Pressure 122/76 Pulse Oximetry 100 100 Oxygen Delivery Method Oxygen Flow Rate 06/09/24 17:30 06/09/24 18:00 06/09/24 18:00 Temperature Pulse Rate 69 Respiratory Rate 17 Blood Pressure 133/66 123/78 Pulse Oximetry 100 Oxygen Delivery Method Oxygen Flow Rate 06/09/24 18:30 06/09/24 18:30 06/09/24 18:46 Temperature 97.9 F Pulse Rate 63 Respiratory Rate 17 Blood Pressure 122/68 Pulse Oximetry 100 100 Oxygen Delivery Method Nasal Cannula Oxygen Flow Rate 2 Medical Decision Making Lab Data Lab results reviewed: Yes I reviewed the patient's lab results. 06/09/24 16:33 06/09/24 16:33 Labs: Lab Results 06/09/24 Range/Units 16:33 WBC 12.3 H (4.5-11.0) X10^3/uL RBC 4.82 (4.0-5.2) X10^6/uL Hgb 13.4 (12.0-16.0) g/dL Hct 41.1 (36-46) % MCV 85.3 (80-100) fL MCH 27.8 (26-34) PG MCHC 32.6 (30-36) % RDW 15.8 H (11.6-14.8) % Plt Count 253 (150-400) X10^3/uL Neut % (Auto) 70.1 (50-75) % Lymph % (Auto) 23.6 L (25-40) % [place] % (Auto) 5.1 (3-14) % Eos % (Auto) 0.4 L (2-4) % Baso % (Auto) 0.8 (0-2) % Neut # (Auto) 8600 H (4408-9277) /uL Lymph # (Auto) 2900 (6222-6793) /uL [place] # (Auto) 600 (0-900) /uL Eos # (Auto) 0 (0-450) /uL Baso # (Auto) 100 (0-100) /uL PT 10.2 (9.4-12.5) SECONDS INR 0.9 (0.9-1.3) APTT 29 (25.1-36.5) SECONDS Sodium 141 (137-145) mmol/L Potassium 3.7 (3.4-5.1) mmol/L Chloride 104 (98-107) mmol/L Carbon Dioxide 29 (22-32) mmol/L BUN 20 H (7-17) mg/dL Creatinine 0.96 (0.52-1.04) mg/dL Estimated GFR > 60 (>60) mL/min BUN/Creatinine Ratio 20.8 (6-22) Glucose 107 H (70-100) mg/dL Calcium 9.6 (8.4-10.2) mg/dL Magnesium 2.3 (1.6-2.3) mg/dL Total Bilirubin 0.7 (0.2-1.3) mg/dL AST 35 (14-36) IU/L ALT 27 (<35) IU/L Alkaline Phosphatase 58 (38-126) U/L Total Creatine Kinase 67 (30-135) U/L Troponin I < 0.012 (0.01-0.034) ng/mL NT-Pro-B Natriuret Pep 70 (<125) pg/mL Total Protein 7.7 (6.3-8.2) g/dL Albumin 4.8 (3.5-5.0) g/dL Globulin 2.9 (1.7-4.1) g/dL Albumin/Globulin Ratio 1.7 (1.0-2.8) Lipase 132 (23-300) U/L Point of Care Testing Glucose POC 112 Point of care testing: Point of Care Testing Glucose POC 112 Imaging Data Chest x-ray: Radiologist's Impression: PROCEDURE: XR CHEST 1V INDICATIONS: chest pain TECHNIQUE: One view of the chest was acquired. COMPARISON: [facility], CT, CT HIGH RESOLUTION CHEST, 11/22/2023, 14:37. [facility], CR, XR CHEST 1V, 04/23/2022, 16:01. FINDINGS: Surgical changes and devices: None. Lungs and pleura: Question small spiculated lesion, right upper lobe. This was not present on the recent high-resolution CT from November,. Chronic interstitial pulmonary fibrosis. No acute infiltrates. No pleural effusions or pneumothorax. Mediastinum: Mediastinal contours appear normal. Heart size is normal. Bones and chest wall: No suspicious bony lesions. Overlying soft tissues appear unremarkable. IMPRESSION: 1. Changes of chronic interstitial pulmonary fibrosis. 2. No focal infiltrates. 3. Question small spiculated nodule, right upper lobe. Comment: Recommend nonemergent CT chest. ECG Data Attestation: I personally reviewed and interpreted this ECG as follows: Interpretation: Sinus rhythm Ventricular rate is 72 Normal axis Normal QRS Normal QTC No ST T wave changes MDM Narrative Medical decision making narrative: At the time of exam patient stated that she was feeling much. I suspect that her symptoms were related to her underlying respiratory issues in the fact that she received medication in order increase her rate for the stress test. She was not hypoxic. Not tachypneic. Low suspicion for ACS. Since she was feeling better we will hold on further workup and discharge patient home to rest. She was given return precautions. She expressed understanding and agreement with plan. Discharge Plan Departure Patient Disposition: Home Clinical Impression: Pre-syncope, Lung nodule, Pulmonary fibrosis Instructions: Fainting Activity Restrictions/Additional Instructions: Continue to take all of your medications as directed. Keep all of your scheduled medical appointments. On the chest x-ray today there was an incidental finding of a pulmonary nodule. Recommend that you message your cream ripener to discuss this before your next visit with him in 2 months. Return to the emergency department for new or worsening symptoms. Prescriptions: No Action codeine-guaifenesin 10-100 mg/5 mL liquid 10 ml PO Q6H PRN (Reason: cough) Qty: 120 0RF alendronate 70 mg tablet 70 mg PO QWEEK entecavir 1 mg tablet 1 mg PO DAILY leflunomide 20 mg tablet 20 mg PO DAILY levothyroxine 75 mcg capsule 75 mcg PO DAILY montelukast 10 mg tablet 10 mg PO DAILY mycophenolate mofetil 500 mg tablet 1.5 g PO Q12H ipratropium bromide 21 mcg (0.03 %) spray,non-aerosol 1 spray intranasal BID Qty: 30 2RF Rx Instructions: administer into each nostril Referrals: Kenji Pop MD [Primary Care Provider] - Stand Alone Forms: Patient Portal/API
== END 2024-06-09 18:47 | disposition home or self-care (01) ==
PROVIDERS: Emergency Medicine; Emergency Provider Emergency Medicine; PCP Family Medicine
DX: R55 Syncope and collapse (principal); R07.9 Chest pain, unspecified; R91.1 Solitary pulmonary nodule; J84.10 Pulmonary fibrosis, unspecified; I20.89 Other forms of angina pectoris
CPT/HCPCS: 36415; 71045; 78452; 80053; 82550; 82962; 83690; 83735; 83880; 84484; 85025; 85610; 85730; 93005; 93017; 99284; A9502; J2785

== ENCOUNTER → 2024-07-03 12:42 | Outpatient (ROUT) | payer OTHER, MEDICAID, SELFPAY ==
[2024-07-03 15:27] LABS: Influenza A - CEPHEID Flu A NEGATIVE (NEGATIVE); Influenza B - CEPHEID Flu B NEGATIVE (NEGATIVE); Respiratory Syncytial Virus Negative (Negative)
[2024-07-03 15:28] LABS: COVID-19 CEPHEID 4-PLEX PCR Negative (Negative)
== END ==
PROVIDERS: PCP Family Medicine; Visit Provider Family Medicine
DX: R05.1 Acute cough (principal)
CPT/HCPCS: 87635; 87400 ×2; 87420; 0241U

== ENCOUNTER → 2025-09-05 07:35 | Outpatient (CLI) | payer OTHER, MEDICAID, SELFPAY | PROVIDERS: PCP Family Medicine; Referring Provider Family Medicine; Visit Provider Internal Medicine | DX: J84.9 Interstitial pulmonary disease, unspecified (principal); I28.8 Other diseases of pulmonary vessels; R06.00 Dyspnea, unspecified | CPT/HCPCS: 71250 ==